=== PATIENT | female | born 1940 | race Caucasian/White ===

== ENCOUNTER 2017-01-14 14:52 | Emergency (ER) | payer OTHER ==
[~2017-01-14] VITALS: Ht 177.8 cm; Wt 138.3 kg
[~2017-01-14 14:52] MED LIST: ACETAMINOPHEN325 M2 PO; ACIDOPHILUS W/P1 CAP PO; ANTIHISTAMINE25 M1 PO; ASPIRIN81 M1 PO; BACTROBAN OINT0.9 GM T; BACTROBAN2% TP; BUMETANIDE1 MG PO; BUMEX1 MG PO; BUMEX2 MG PO; CENTRUM1 TAB PO; COREG25 MG PO; COUMADIN5 M2 PO; DIGOXIN0.125 MG PO; DULCOLAX10 M1 R; DUONEB 3 MG/3 ML3 M1 NEB; EFFER-K20 MEQ PO; ELIQUIS2.5 M1 PO; ELIQUIS5 M1 PO; FEOSOL300 MG PO; FUROSEMIDE40 MG PO; HYDRALAZINE10 MG PO; IRON65 MG PO; KEFLEX500 MG PO; KLOR-CON 1010 MEQ PO; KLOR-CON M2020 ME1 PO; KLOR-CON20 MEQ PO; LEVAQUIN750 MG PO; LEVOFLOXACIN500 MG PO; LISINOPRIL10 MG PO; METOPROLOL TA37.5 MG PO; MILK OF MA400 MG/5 M PO; MINITRAN0.1 MG/HR TD; NATURE'S BLEND F1 MG PO; PRAVACHOL20 MG PO; PREDNISONE10 MG PO; PRILOSEC20 M1 PO; PRILOSEC40 MG PO; TYLENOL325 M1 PO; VIBRA-TAB100 M1 PO; ZAROXOLYN2.5 MG PO
[2017-01-14 15:06] VITALS: BP 118/84
[2017-01-14 15:25] LABS: BASO % 0.4 % (0.0-1.0); EOS % 0.7 % (1.0-4.0); HEMATOCRIT 36.8 % (37.0-47.0); HEMOGLOBIN 11.3 g/dl (12.0-16.0); LYMPH # 0.6 10*3/uL (1.3-4.4); LYMPH % 11.4 % (27.0-41.0); MEAN CELL VOLUME 85.4 fl (81.0-99.0); MEAN CORPUSCULAR HGB 26.2 pg (27.0-31.0); MEAN CORPUSCULAR HGB CONC 30.7 g/dl (33.0-37.0); MEAN PLATELET VOLUME 9.2 fl (9.6-12.3); MONO # 0.4 10*3/uL (0.1-1.0); MONO % 7.5 % (3.0-9.0); NEUT # 4.2 10*3/uL (2.3-7.9); NEUT % 79.4 % (47.0-73.0); PLATELET COUNT AUTOMATED 164 10*3/uL (130-400); RED BLOOD COUNT 4.31 10*6/uL (4.10-5.10); WHITE BLOOD COUNT 5.3 10*3/uL (4.8-10.8)
[2017-01-14 15:40] LABS: ALBUMIN 3.4 gm/dl (3.1-4.5); CREATININE 1.19 mg/dL (0.55-1.02); POTASSIUM 4.7 mmol/L (3.5-5.1); TOTAL PROTEIN 7.7 gm/dL (6.4-8.2)
[2017-01-14 16:11] LABS: BILIRUBIN NEGATIVE (NEGATIVE); BLOOD TRACE-LYSED (NEGATIVE); CLARITY CLEAR (CLEAR); COLOR YELLOW (YELLOW); GLUCOSE NEGATIVE (NEGATIVE); KETONE NEGATIVE (NEGATIVE); LEUKO ESTERASE 1+ (NEGATIVE); NITRITE NEGATIVE (NEGATIVE); PH 5.5 (5.0-9.0); SPECIFIC GRAVITY <= 1.005 (1.005-1.030); UROBILINOGEN 0.2 E.U./dl (0.2-1.0)
[2017-01-14 16:18] LABS: BACTERIA 1+; RBC 0-2 rbc/hpf (0-2)
[2017-01-14] MEDS ORDERED: PYRIDIUM100 MG PO (17:14)
== END 2017-01-14 18:36 | disposition home or self-care (01) ==
LOC: ED 14:52
PROVIDERS: Student in an Organized Health Care Education/Training Program
DX: N39.0 Urinary tract infection, site not specified (principal); I13.0 Hypertensive heart and chronic kidney disease with heart failure and stage 1 through stage 4 chronic kidney disease, or unspecified chronic kidney disease; N18.3 Chronic kidney disease, stage 3 (moderate); I50.9 Heart failure, unspecified; I48.91 Unspecified atrial fibrillation; K21.9 Gastro-esophageal reflux disease without esophagitis; E78.5 Hyperlipidemia, unspecified; E66.9 Obesity, unspecified; M06.9 Rheumatoid arthritis, unspecified; Z68.39 Body mass index [BMI] 39.0-39.9, adult; Z90.710 Acquired absence of both cervix and uterus; Z98.890 Other specified postprocedural states; Z98.42 Cataract extraction status, left eye; Z79.899 Other long term (current) drug therapy

== ENCOUNTER 2017-01-19 10:28 | Inpatient (IN) | payer OTHER ==
[2017-01-19] VITALS (12 sets, daily range): BP systolic 100–152; BP diastolic 35–67
[~2017-01-19] VITALS: Ht 177.8 cm; Wt 133.4 kg
--- NOTE | ~2017-01-19 | PR ---
[place], [place] PROGRESS NOTE NAME: RHETT PASTRANA UNIT #: [id number] ROOM: 408 DOCTOR: DAVON MOSQUEDAEBER BIRTHDATE: [birth year] DOS: 01/23/2017 SUBJECTIVE: The patient was seen at her bedside today, 01/23/2017 for followup of her atrial fibrillation in the setting of gastrointestinal blood loss. She is feeling well today. She states that she has a lot of pressure in her abdomen, but denies nausea, vomiting or melena. She has not had any recent diarrhea. Her heart rate has been better controlled on the increased dose of metoprolol and she denies any lightheadedness. Review of the chart indicates that she is scheduled to have further endoscopy within the next day or two. PHYSICAL EXAMINATION: VITAL SIGNS: Today, her pulse is around 80 and irregularly irregular, blood pressure is 122/54. She is afebrile. She weighs 147.4 kg and has a body mass index of 46.6. HEENT: Normocephalic, atraumatic. NECK: Supple. She has no jugular distention. Carotids are full and I heard no bruits. LUNGS: Respirations were unlabored. Her chest was clear to auscultation and percussion. HEART: Had an irregularly irregular rhythm without murmurs or gallops. ABDOMEN: Distended, but soft and normally active. EXTREMITIES: Had lymphedema. LABORATORY DATA: Hemoglobin is 9.9 and stable, white count is 4500, platelet count 147,000. Sodium is 138, potassium 3.7, BUN 67, creatinine 0.89. IMPRESSION: 1. Permanent atrial fibrillation. 2. Lymphedema. 3. Hypertension. 4. Chronic diastolic heart failure with acute exacerbation. The patient appears to be well compensated at this time. 5. Chronic renal insufficiency -- stable. 6. Upper gastrointestinal bleed. Anticoagulation has been on hold pending completion of her gastrointestinal evaluation. PLAN: The patient appears to be hemodynamically stable. We will continue her current medications and resume anticoagulation therapy when cleared by Gastroenterology. We thank the hospitalist physicians for asking our advice regarding her care. [place], [place] PROGRESS NOTE NAME: RHETT PASTRANA UNIT #: [id number] ROOM: 408 DOCTOR: EBER MAYS MD BIRTHDATE: [birth year] EBER MAYS MD CM:PNTRANS [phone] EBER MAYS MD 01/23/17 1144 interface
--- NOTE | ~2017-01-19 | O ---
[place], [place] OPERATIVE NOTE NAME: RHETT PASTRANA UNIT #: [id number] ROOM: 408 DOCTOR: ARPAN ROCHE MD BIRTHDATE: [birth year] DOS: GASTROENDOSCOPIC REPORT INDICATIONS: The patient has presented with chief complaint of epigastric abdominal pain, history of anemia, history of gastritis, morbid obesity and otherwise is being managed at the present time. I have been asked for assessment of the patient's colon. PAST MEDICAL HISTORY: Hypertension, chronic renal disease, congestive heart failure, obesity, gastroesophageal reflux, atrial fibrillation, dyslipidemia and hypertension. PROCEDURE: Today's procedure part of investigation is colonoscopy. PREMEDICATION: Versed and Diprivan. SCOPE: Olympus forward-viewing colonoscope 10L video. REPORT: After putting the patient in the left lateral position and after application of lubricant to rectal pouch and digital examination, scope was introduced. Thereafter under direct visualization with difficulty passed through the very involved segment of sigmoid colon with diverticulosis and tortuosity. Scope finally negotiated all the way to about hepatic flexure where solid stool is hindering. Further advancement, scope was gradually withdrawn. The patient extubated, tolerated procedure well. IMPRESSION: Diverticulosis, tortuous sigmoid colon, retention of stool in right colon. PLAN AND DISCUSSION: We will see the patient with supportive management at this stage. I will discuss with the patient to see if she wants to have a re-prep and re-done, I doubt. Sincerely if they are going to agree because initially, they are going to even difficulty with agreement regarding even a colonoscopy screening. [place], [place] OPERATIVE NOTE NAME: RHETT PASTRANA UNIT #: [id number] ROOM: 408 DOCTOR: ARPAN ROCHE MD BIRTHDATE: [birth year] ARPAN ROCHE MD CM:OPRECORD:OPERATIVE NOTE [id number] ARPAN ROCHE MD 01/26/17 1103 interface
--- NOTE | ~2017-01-19 | PR ---
[place], [place] PROGRESS NOTE NAME: RHETT PASTRANA [facility] #: [id number] UNIT #: [id number] ROOM: 408 DOCTOR: DELL MAR MD BIRTHDATE: [birth year] DOS: REFERRING PHYSICIAN: Dr. Curran. SUBJECTIVE: The patient is sitting up in bed, does not appear in distress, requesting to be discharged home. From the cardiology point of view, denies any specific cardiac complaint. No chest pain, no chest pressure, no heaviness or tightness. OBJECTIVE: VITAL SIGNS: Blood pressure 135/55, heart rate 80, respiratory rate of 18, temperature 97.5. NECK: Good upstroke, no bruit. HEART: S1, S2 with significant systolic ejection murmur at right upper sternal border. Holosystolic murmur at left lower sternal border. CHEST AND BACK: Not examined. LUNGS: Significant decreased air movement, but no ying wheezing or rales. ABDOMEN: Morbidly obese, soft, nontender, present bowel sounds. EXTREMITIES: Lower extremities, there is a 2/4 bilateral edema/lymphedema. LABORATORY DATA: White count 4.3, hemoglobin 10.0. Potassium 3.8. GFR 57%. ASSESSMENT AND PLAN: Current presentation with atrial fibrillation and rapid ventricular response along with signs of diastolic dysfunction. The patient had evidence of anemia, but subsequent EGD and colonoscopy convert on the presence of diverticulitis. The patient is back on her Xarelto. She appears to be tolerating that relatively well. From the cardiology point of view, she can be discharged home and with early follow up with Dr. Ramirez within 2-4 weeks. Low-salt diet was emphasized. DELL MAR MD CM:PNTRANS 02 [phone] DELL MAR MD 01/27/172352 interface
--- NOTE | ~2017-01-19 | O ---
[place], [place] OPERATIVE NOTE NAME: RHETT PASTRANA [facility] #: [id number] UNIT #: [id number] ROOM: 408 [facility] [birth year] DOS: GASTRO-ENDOSCOPIC REPORT INDICATIONS: The patient is a 76-year-old who has presented with multiple medical problems, among which is her borderline anemia and 10 and 33. The patient on Xarelto. I have been asked for assessment of the patient, ruling out upper GI contribution to blood loss. She is also expressing BUN and creatinine of 93 and 1.3 with 47% GFR, lactic acid 1.5. Her CT scan of the abdomen and pelvis reviewed, gastroesophageal reflux, diverticulosis, splenomegaly, anterior abdominal wall possible cellulitis, hyperdense ____ region. These may be hemorrhagic cysts. Further investigation was recommended. BUN and creatinine remain elevated on repeated examinations. Urine culture, greater than 100,000 heavy gram-negative bacilli. Basic metabolic panel was reassessed. CBC differential reassessed. Ova and parasite negative. PAST MEDICAL HISTORY: Obesity, diabetes mellitus, chronic renal failure, atrial fibrillation, GERD, hyperlipidemia, stasis dermatitis of lower extremities. PAST SURGICAL HISTORY: Cataract, hysterectomy. SOCIAL HISTORY: Nonsmoker, nonalcohol consumer. FAMILY HISTORY: Noncontributory. ALLERGIES: To no known medication. MEDICATIONS: List has been reviewed, Zantac 150 mg b.i.d. has been noticed. She has been chronically on bisacodyl. PROCEDURE: Today's procedure part of investigation is panendoscopy plus biopsy. PREMEDICATION: Versed and Diprivan. SCOPE: Olympus forward-viewing gastroscope Q10 video. REPORT: After putting the patient in the left lateral position and after application of lubricant to the scope, the scope was introduced. Thereafter, under direct visualization, I advanced through the length of esophagus into the gastric pouch. Evidence of gastritis was noticed. Antral biopsy obtained. Duodenal bulb, second and third parts were free of ulceration and lesion. The patient extubated, tolerated procedure well. IMPRESSION: Gastritis, status post biopsy. I did not see any active source of bleeding in this patient; however, the patient has been on ranitidine. The patient has been on Xarelto. PLAN AND DISCUSSION: This patient with multiple causes for anemia including contribution from colon occult malignancy and in addition to renal insufficiency and in addition to rheumatologic etiologies with advanced rheumatoid arthritis [place], [place] OPERATIVE NOTE NAME: [facility]: [id number] UNIT #: [id number] ROOM: 408 DOCTOR: KALEY MOSQUEDA,ARPAN BIRTHDATE: [birth year] and stasis dermatitis of lower extremities and ulcerations, possibility of anticoagulants for chronic blood loss, which she is taking because of atrial fibrillation, all have been kept in mind. At the present time, no active bleeding in the upper GI tract. Possibility of renal cyst and lesions has to be another consideration. Sonographic study of the renal is recommended. The patient is going to be started on soft 1800 ADA diet and clinical reassessment. Protonix is going to be on board. Thank you very much indeed. ARPAN ROCHE MD CM:OPRECORD:OPERATIVE NOTE [phone] ARPAN ROCHE MD 01/24/17 1552 interface
--- NOTE | ~2017-01-19 | PR ---
[place], [place] PROGRESS NOTE NAME: ACOSTA [facility]NAJORIE [id number] UNIT #: [id number] ROOM: 408 DOCTOR: EBER MAYS MD BIRTHDATE: [birth year] DOS: 01/22/2017 CARDIOLOGY PROGRESS NOTE SUBJECTIVE: The patient was seen at her bedside today, 01/22/2017, for a followup of her atrial fibrillation in the setting of a GI bleed. She feels well. She denies any upset stomach, nausea or vomiting. Her heart rate has been better controlled and she denies any lightheadedness or syncope. Review of her labs show that her hemoglobin has stabilized at about 9.8. PHYSICAL EXAMINATION: VITAL SIGNS: Today, her pulse is 85 and irregularly irregular, blood pressure is 126/77. She is afebrile. She weighs 147.4 kg and has a body mass index of 46.6. NECK: Supple. She has no jugular distention. Her carotids are full. LUNGS: Respirations are unlabored. Her chest is clear. HEART: Has an irregularly irregular rhythm. There are no murmurs or gallops. ABDOMEN: Slightly distended, but otherwise benign. EXTREMITIES: Showed no edema. IMPRESSIONS: 1. Permanent atrial fibrillation. 2. Lymphedema. 3. Hypertension. 4. Chronic diastolic heart failure with acute exacerbation. 5. Renal insufficiency. 6. Upper gastrointestinal bleed. Anticoagulation therapy on hold pending GI evaluation. PLAN: At this point, she does seem to have a well-controlled heart rate. Vital signs have stabilized and her blood count has stabilized as well. I will titrate her metoprolol up somewhat more and continue to monitor her in the hospital. We would like to resume her anticoagulation as soon as it is safe to do so. I thank the hospitalist physicians for asking our advice regarding her care. [place], [place] PROGRESS NOTE NAME: ZEIANRHETT BRUNSON UNIT #: [id number] ROOM: 408 DOCTOR: EBER MAYS MD BIRTHDATE: [birth year] EBER MAYS MD CM:PNTRANS [id number] EBER MAYS MD 01/23/17 0401 interface
[~2017-01-19 10:28] MED LIST changes: +PYRIDIUM100 MG PO
[2017-01-19 10:52] LABS: BASO % 0.2 % (0.0-1.0); EOS % 0.8 % (1.0-4.0); HEMATOCRIT 34.2 % (37.0-47.0); HEMOGLOBIN 10.3 g/dl (12.0-16.0); LYMPH # 0.5 10*3/uL (1.3-4.4); LYMPH % 10.6 % (27.0-41.0); MEAN CELL VOLUME 86.6 fl (81.0-99.0); MEAN CORPUSCULAR HGB 26.1 pg (27.0-31.0); MEAN CORPUSCULAR HGB CONC 30.1 g/dl (33.0-37.0); MONO # 0.3 10*3/uL (0.1-1.0); MONO % 6.4 % (3.0-9.0); NEUT # 4.1 10*3/uL (2.3-7.9); NEUT % 81.6 % (47.0-73.0); PLATELET COUNT AUTOMATED 135 10*3/uL (130-400); RED BLOOD COUNT 3.95 10*6/uL (4.10-5.10); RED CELL DISTRI WIDTH 14.1 % (0-14.5)
[2017-01-19 11:01] LABS: ACT PARTIAL THROMBO TIME 27.1 SECONDS (20.8-31.5)
[2017-01-19 11:07] LABS: ALBUMIN 3.3 gm/dl (3.1-4.5); ALKALINE PHOSPHATASE 155 U/L (45-117); BUN 93 mg/dl (7-24); CHLORIDE 92 mmol/L (98-107); CREATININE 1.34 mg/dL (0.55-1.02); MAGNESIUM 2.4 mg/dL (1.5-2.1); POTASSIUM 4.2 mmol/L (3.5-5.1); SGOT/AST 26 IU/L (3-35); SGPT/ALT 27 U/L (12-78); SODIUM 134 mmol/L (136-145); TOTAL PROTEIN 7.4 gm/dL (6.4-8.2)
[2017-01-19 11:10] LABS: TROPONIN I < 0.015 ng/ml (<0.045)
[2017-01-19 11:17] LABS: BILIRUBIN NEGATIVE (NEGATIVE); BLOOD NEGATIVE (NEGATIVE); CLARITY CLEAR (CLEAR); COLOR YELLOW (YELLOW); GLUCOSE NEGATIVE (NEGATIVE); KETONE NEGATIVE (NEGATIVE); LEUKO ESTERASE NEGATIVE (NEGATIVE); NITRITE NEGATIVE (NEGATIVE); UROBILINOGEN 0.2 E.U./dl (0.2-1.0)
[2017-01-19 11:30] LABS: RBC 0-2 rbc/hpf (0-2)
--- NOTE | 2017-01-19 12:13 | NUR ---
CARDIZEM DRIP REMAINS AT 10MG/HR. VSS. SISTER AT BEDSIDE, WILL CONT TO MONITOR.
--- NOTE | 2017-01-19 13:58 | NUR ---
TREVER, NURSE AT [facility] INFORMED OF DECISION TO ADMIT PATIENT AND GIVEN UPDATE.
[2017-01-19] MEDS ORDERED: DEEP SEA44 ML NAS (14:31)
[2017-01-19] MEDS ORDERED: LASIX80 MG PO (14:33)
--- NOTE | 2017-01-19 14:34 | NUR ---
[facility] , under the services of MIRTHA Dias DO with a diagnosis of AFIB. Chief complaint is CHEST PAIN. Patient arrived via bed from ER. Monitor applied. Initial assessment completed. Vital signs taken and recorded. MIRTHA DIAS DO notified of admission to the unit. Orders received. See assessment for past medical history, medications and allergies. Patient and/or family oriented to unit. [facility] visitation policy reviewed. Clothing/patient valuable form completed. HAL TIJERINA
[2017-01-19] MEDS ORDERED: DOCUSATE SOD100 MG PO (14:50)
[2017-01-19] MEDS ORDERED: PROVENTIL HFA6.7 GM INH (14:52)
[2017-01-19] MEDS ORDERED: ZANTAC 150150 MG PO (14:54)
[2017-01-19] MEDS ORDERED: Zaroxolyn,Diul2.5 MG PO (14:55)
--- NOTE | 2017-01-19 14:57 | NUR ---
MEDICATIONS VERIFIED VIA MED REC FROM SNF
--- NOTE | 2017-01-19 16:44 | NUR ---
CARDILOGY SERVICE NOTIFIED OF CONSULT
--- NOTE | 2017-01-19 17:00 | NUR ---
Patient not available for echo. Being prepped. Going for Barium swallow test. echo on hold tillmonday 01/22/17.
--- NOTE | 2017-01-19 17:03 | NUR ---
Patient not available for echo. Being prepped for another proceure. Echo to be done Sunday01/22/17.
--- NOTE | 2017-01-19 21:42 | NUR ---
GIVEN PRN ACETAMINOPHEN FOR HEADACHE.
[2017-01-20] VITALS: BP 103/60
[2017-01-20 04:00] VITALS: BP 121/52
--- NOTE | 2017-01-20 05:17 | NUR ---
IV STARTED IN RIGHT ARM, 22 CAREN WITH GOOD BLOOD RETURN, FLUSHED WITHOUT DIFFICULTY, PT TOLERATED WELL
[2017-01-20 05:50] LABS: ALBUMIN 3.1 gm/dl (3.1-4.5); CHLORIDE 92 mmol/L (98-107); MAGNESIUM 2.2 mg/dL (1.5-2.1); POTASSIUM 3.9 mmol/L (3.5-5.1); SODIUM 136 mmol/L (136-145)
[2017-01-20 05:54] LABS: BASO % 0.5 % (0.0-1.0); EOS # 0.1 10*3/uL (0.0-0.4); EOS % 1.8 % (1.0-4.0); HEMATOCRIT 31.8 % (37.0-47.0); HEMOGLOBIN 9.7 g/dl (12.0-16.0); LYMPH # 0.6 10*3/uL (1.3-4.4); MEAN CELL VOLUME 87.1 fl (81.0-99.0); MEAN CORPUSCULAR HGB 26.6 pg (27.0-31.0); MEAN CORPUSCULAR HGB CONC 30.5 g/dl (33.0-37.0); MEAN PLATELET VOLUME 9.8 fl (9.6-12.3); MONO # 0.4 10*3/uL (0.1-1.0); MONO % 9.5 % (3.0-9.0); NEUT # 3.3 10*3/uL (2.3-7.9); NEUT % 73.7 % (47.0-73.0); PLATELET COUNT AUTOMATED 135 10*3/uL (130-400); RED BLOOD COUNT 3.65 10*6/uL (4.10-5.10); WHITE BLOOD COUNT 4.4 10*3/uL (4.8-10.8)
[2017-01-20 05:56] LABS: ALKALINE PHOSPHATASE 136 U/L (45-117); BUN 84 mg/dl (7-24); CHOLESTEROL 113 mg/dL (<200); CREATININE 1.05 mg/dL (0.55-1.02); FREE T4 1.13 ng/dl (0.76-1.46); HDL CHOLESTEROL 53 mg/dl (40-60); LDL CHOLESTEROL 48 mg/dL (9-159); SGOT/AST 23 IU/L (3-35); SGPT/ALT 24 U/L (12-78); TRIGLYCERIDES 62 mg/dl (<150); VLDL CHOLESTEROL 12 mg/dL (6-40)
[2017-01-20 06:05] LABS: ACT PARTIAL THROMBO TIME 26.3 SECONDS (20.8-31.5)
--- NOTE | 2017-01-20 06:43 | NUR ---
24 HR chart check completed.
[2017-01-20 09:10] LABS: VITAMIN D, 25-HYDROXY 33.1 ng/mL (30-100)
--- NOTE | 2017-01-20 09:17 | NUR ---
PATIENT IS RESTING COMFORTABLY IN BED. PATIENT DENIES AND PAIN OR SOB. PATIENT IS RECEIVING A CARDIZEM DRIP RUNNING AT 5ML/HR TO HELP REGULATE HEART RHYTHM. 0800 MONITOR STRIP SHOWED AFIB AT 97 BPM. WILL CONTINUE TO MONITOR PATIENT, CALL LIGHT SYSTEM REINFORCED. SEE SHIFT ASSESSMENT.
[2017-01-20 12:00] VITALS: BP 106/47
[2017-01-20 16:00] VITALS: BP 146/82
[2017-01-20 20:00] VITALS: BP 115/47
[2017-01-20 22:00] VITALS: BP 103/52
--- NOTE | 2017-01-20 23:43 | NUR ---
MEDICATED WITH PRN TYLENOL ORDERD FOR C/O GENERALIZED PAIN AT A 6. WILL MONITOR EFFECTIVENESS. RESTING QUIETLY IN BED. NO SXS OF DISTRESS. CALL LIGHT IS IN REACH.
[2017-01-21] VITALS (7 sets, daily range): BP systolic 97–121; BP diastolic 53–78
--- NOTE | 2017-01-21 01:00 | NUR ---
PATIENT STATES EARLIER TYLENOL WAS EFFECTIVE.
[2017-01-21 06:01] LABS: BASO % 0.5 % (0.0-1.0); EOS # 0.1 10*3/uL (0.0-0.4); EOS % 2.3 % (1.0-4.0); HEMATOCRIT 32.4 % (37.0-47.0); HEMOGLOBIN 9.6 g/dl (12.0-16.0); LYMPH # 0.7 10*3/uL (1.3-4.4); LYMPH % 16.2 % (27.0-41.0); MEAN CELL VOLUME 87.3 fl (81.0-99.0); MEAN CORPUSCULAR HGB 25.9 pg (27.0-31.0); MEAN CORPUSCULAR HGB CONC 29.6 g/dl (33.0-37.0); MEAN PLATELET VOLUME 9.3 fl (9.6-12.3); MONO # 0.4 10*3/uL (0.1-1.0); MONO % 8.5 % (3.0-9.0); NEUT # 3.1 10*3/uL (2.3-7.9); PLATELET COUNT AUTOMATED 141 10*3/uL (130-400); RED BLOOD COUNT 3.71 10*6/uL (4.10-5.10); RED CELL DISTRI WIDTH 14.3 % (0-14.5); WHITE BLOOD COUNT 4.3 10*3/uL (4.8-10.8)
[2017-01-21 06:27] LABS: BUN 80 mg/dl (7-24); CHLORIDE 91 mmol/L (98-107); SODIUM 136 mmol/L (136-145)
[2017-01-21 06:28] LABS: CREATININE 0.97 mg/dL (0.55-1.02)
--- NOTE | 2017-01-21 06:39 | NUR ---
PATIENT SLEPT COMFORTABLY T/O THE SHIFT. NO VOICED COMPLAINTS. CARD GTT MAINTAINED PER ORDER. RESPIRATIONS EASY/REG. NO SXS OF DISTRESS. CALL LIGHT IN REACH.
--- NOTE | 2017-01-21 10:25 | NUR ---
DR. CHAPMAN ORDERED CARDIZEM BE DC AT THIS TIME, AND ADJUSTED DOSE OF METOPROLOL. SEE EMAR FOR MORE DETAILS. WILL CONTINUE TO MONITOR PT.
--- NOTE | 2017-01-21 11:47 | NUR ---
ATTEMPTED TO CALL DR. ROCHE FOR CONSULT. LEFT MESSAGE.
--- NOTE | 2017-01-21 12:42 | NUR ---
SPOKE WITH DR. KALEY CHAUDHARY CONSULT. HE WOULD LIKE TO BE CALLED WITH KUB RESULTS
--- NOTE | 2017-01-21 13:01 | NUR ---
DR. ROCHE CALLED BACK AND WAS INFORMED ON THE EGD. HE HAS ASKED FOR THE KUB RESULTS WHEN AVAILIBLE.
--- NOTE | 2017-01-21 20:24 | NUR ---
PATIENT IS ORDERED A 50 MG METOPROLOL TONIGHT AND HAS A BP OF 113/56. DR GORDON NOTIFIED OF MY CONCERN TO GIVE THIS. DR GORDON STATED TO GO A HEAD AND HOLD 1/2 OF THE 50 MG TAB. REFER TO MAR.
--- NOTE | 2017-01-21 20:44 | NUR ---
prn tylenol given for a 3/10 headache.
--- NOTE | 2017-01-21 21:45 | NUR ---
PRN PAIN MED APPEARS EFFECTIVE, PT IS SLEEPING , BREATHING EASY.
[2017-01-22] VITALS: BP 116/60
--- NOTE | 2017-01-22 01:49 | NUR ---
24 HR chart check completed.
[2017-01-22 06:32] LABS: BASO % 0.5 % (0.0-1.0); EOS # 0.1 10*3/uL (0.0-0.4); EOS % 2.3 % (1.0-4.0); HEMATOCRIT 32.9 % (37.0-47.0); HEMOGLOBIN 9.8 g/dl (12.0-16.0); LYMPH # 0.6 10*3/uL (1.3-4.4); LYMPH % 14.3 % (27.0-41.0); MEAN CELL VOLUME 87.5 fl (81.0-99.0); MEAN CORPUSCULAR HGB 26.1 pg (27.0-31.0); MEAN CORPUSCULAR HGB CONC 29.8 g/dl (33.0-37.0); MEAN PLATELET VOLUME 9.3 fl (9.6-12.3); MONO # 0.5 10*3/uL (0.1-1.0); MONO % 10.5 % (3.0-9.0); NEUT # 3.1 10*3/uL (2.3-7.9); NEUT % 71.9 % (47.0-73.0); PLATELET COUNT AUTOMATED 143 10*3/uL (130-400); RED BLOOD COUNT 3.76 10*6/uL (4.10-5.10); RED CELL DISTRI WIDTH 14.1 % (0-14.5); WHITE BLOOD COUNT 4.3 10*3/uL (4.8-10.8)
[2017-01-22 07:00] LABS: BUN 76 mg/dl (7-24); CHLORIDE 91 mmol/L (98-107); CREATININE 0.96 mg/dL (0.55-1.02); SODIUM 137 mmol/L (136-145)
[2017-01-22 08:00] VITALS: BP 117/66
--- NOTE | 2017-01-22 08:30 | NUR ---
PASSENGER SERVICE MANAGER VS. STATES SHE LIVES AT [facility] AND PLANS TO RETURN UPON DC. WILL CHECK WITH [facility] FOR DC NEEDS.
--- NOTE | 2017-01-22 09:28 | NUR ---
Kapil Holman stated patient is LTC and can return when medically stable for discharge.
--- NOTE | 2017-01-22 10:57 | NUR ---
PHYSICAL THERAPY PAtient is half-way care for many years. Per PT notes at this facility, has been MAX (A) x 2 or more since 2013. PAtient reports she " has no feelings in her legs, can not stand, move or exercise legs and very little use arms"- requests no PT. PAtient with no PT skills/needs. Suggest solomon via nursing staff prn and PROM with [facility]. Return to half-way care as prior. D/c PT orders. Thank you for this referral. Brittnee Salmeron,PT
[2017-01-22 12:00] VITALS: BP 126/77
--- NOTE | 2017-01-22 13:35 | NUR ---
Stools speciman obtained and sent to lab by
[2017-01-22 16:00] VITALS: BP 134/67
--- NOTE | 2017-01-22 19:51 | NUR ---
PATIENT RESTING IN BED WATCHING TV. NO NEEDS MADE. NO S/S OF DISTRESS. RESPS EASY AND REGULAR. BED IN LOWEST POSITION, CALL LIGHT IN REACH
[2017-01-22 20:00] VITALS: BP 128/72
--- NOTE | 2017-01-22 22:49 | NUR ---
24 HR chart check completed.
[2017-01-23] VITALS: BP 125/58
--- NOTE | 2017-01-23 00:45 | NUR ---
DR AGUILAR AWARE OF PATIENT AFIB WITH OCCASIONAL PVC'S. NO ORDERS.
--- NOTE | 2017-01-23 00:48 | NUR ---
SPOKE WITH CLEANING SPECIALIST ABOUT WHAT TIME PATIENT CONVERTED TO AFIB DURING DAY SHIFT. SHE STATES THAT THE PATIENT WAS NEVER NSR AND IT WAS A TECH ERROR WHEN STATES THAT THE PATIENT WAS. SHE HAS ALWAYS BEEN IN AFIB.
--- NOTE | 2017-01-23 01:51 | NUR ---
PATIENT RESTING IN BED WITH NO S/S OF DISTRESS. RESPS EASY AND REGULAR. BED IN LOWEST POSITION, CALL LIGHT IN REACH
[2017-01-23 06:20] LABS: BASO % 0.2 % (0.0-1.0); EOS # 0.1 10*3/uL (0.0-0.4); EOS % 1.6 % (1.0-4.0); HEMATOCRIT 33.4 % (37.0-47.0); HEMOGLOBIN 9.9 g/dl (12.0-16.0); LYMPH # 0.6 10*3/uL (1.3-4.4); LYMPH % 13.2 % (27.0-41.0); MEAN CELL VOLUME 87.7 fl (81.0-99.0); MEAN CORPUSCULAR HGB CONC 29.6 g/dl (33.0-37.0); MEAN PLATELET VOLUME 9.3 fl (9.6-12.3); MONO # 0.5 10*3/uL (0.1-1.0); NEUT # 3.3 10*3/uL (2.3-7.9); NEUT % 74.6 % (47.0-73.0); PLATELET COUNT AUTOMATED 147 10*3/uL (130-400); RED BLOOD COUNT 3.81 10*6/uL (4.10-5.10); RED CELL DISTRI WIDTH 14.1 % (0-14.5); WHITE BLOOD COUNT 4.5 10*3/uL (4.8-10.8)
[2017-01-23 06:44] LABS: BUN 67 mg/dl (7-24); CHLORIDE 90 mmol/L (98-107); CREATININE 0.89 mg/dL (0.55-1.02); POTASSIUM 3.7 mmol/L (3.5-5.1); SODIUM 138 mmol/L (136-145)
--- NOTE | 2017-01-23 06:50 | NUR ---
DR NANCE AWARE OF CRITICAL CARBON DIOXIDE OF 42. NO ORDERS
[2017-01-23 08:00] VITALS: BP 122/54
--- NOTE | 2017-01-23 10:56 | NUR ---
DR PATTEN IN WITH PATIENT NURSE CALLED DR ROCHE TO VERIFY IF PATIENT WAS IN FACT HAVING EGD TODAY. DR ROCHE WAS WAITING FOR PATIENTS HEART RATE TO STABILZE WELL PATIENTS OTHER HEALTH ISSUES BEFORE HE TOOK HER TO SURGERY. PATIENT WILL REAMIN ON CARDIAC DIET TODAY AND WILL BE NPO AT MISNIGHT AND GO FOR EGD IN MORNING TOMORROW 01/24/17. NURSE NOTIFIED RAMOS OF THE CONVERSATION WITH DR ROCHE. PATIENT WAS ALSO ADVISED OF THE PLAIN OF CARE FOR HER SEE SHIFT ASSESSMENT
[2017-01-23 11:17] LABS: BILIRUBIN NEGATIVE (NEGATIVE); BLOOD 2+ (NEGATIVE); CLARITY CLEAR (CLEAR); COLOR YELLOW (YELLOW); GLUCOSE NEGATIVE (NEGATIVE); KETONE NEGATIVE (NEGATIVE); LEUKO ESTERASE 1+ (NEGATIVE); NITRITE NEGATIVE (NEGATIVE); PH 5.5 (5.0-9.0); SPECIFIC GRAVITY <= 1.005 (1.005-1.030); UROBILINOGEN 0.2 E.U./dl (0.2-1.0)
[2017-01-23 11:27] LABS: BACTERIA 1+; RBC 16-20 rbc/hpf (0-2)
--- NOTE | 2017-01-23 11:45 | NUR ---
Complaints of headache above eyes, rated 3/ 10 scale. Medicated with Tylenol po. See MAR. Bayron MCKINNON
[2017-01-23 12:00] VITALS: BP 120/62
[2017-01-23 16:10] VITALS: BP 120/60
[2017-01-23 20:00] VITALS: BP 120/60
[2017-01-24] VITALS (9 sets, daily range): BP systolic 102–142; BP diastolic 52–70
[2017-01-24 06:21] LABS: BUN 60 mg/dl (7-24); CHLORIDE 90 mmol/L (98-107); CREATININE 0.97 mg/dL (0.55-1.02); POTASSIUM 3.9 mmol/L (3.5-5.1); SODIUM 140 mmol/L (136-145)
[2017-01-24 06:26] LABS: BASO % 0.7 % (0.0-1.0); EOS # 0.1 10*3/uL (0.0-0.4); EOS % 2.8 % (1.0-4.0); HEMATOCRIT 34.9 % (37.0-47.0); HEMOGLOBIN 10.1 g/dl (12.0-16.0); LYMPH # 0.5 10*3/uL (1.3-4.4); LYMPH % 11.8 % (27.0-41.0); MEAN CELL VOLUME 89.3 fl (81.0-99.0); MEAN CORPUSCULAR HGB 25.8 pg (27.0-31.0); MEAN CORPUSCULAR HGB CONC 28.9 g/dl (33.0-37.0); MEAN PLATELET VOLUME 9.6 fl (9.6-12.3); MONO # 0.4 10*3/uL (0.1-1.0); MONO % 8.7 % (3.0-9.0); NEUT # 3.5 10*3/uL (2.3-7.9); NEUT % 75.6 % (47.0-73.0); PLATELET COUNT AUTOMATED 144 10*3/uL (130-400); RED BLOOD COUNT 3.91 10*6/uL (4.10-5.10); RED CELL DISTRI WIDTH 14.1 % (0-14.5); WHITE BLOOD COUNT 4.6 10*3/uL (4.8-10.8)
--- NOTE | 2017-01-24 16:57 | NUR ---
DR ROCHE CALLED AND NOTIFIED THAT PATIENT IS REFUSING COLO FOR SUNDAY. HE STATED TO CANCEL ANY COLO ORDERS AND ALSO STATED TO GIVE THE PATIENT A REGUALR DIET. NO OTHER COCNERNS AT THIS TIME.
[2017-01-25] VITALS: BP 104/55
[2017-01-25 06:50] LABS: BASO % 0.5 % (0.0-1.0); EOS # 0.2 10*3/uL (0.0-0.4); EOS % 3.6 % (1.0-4.0); HEMATOCRIT 33.6 % (37.0-47.0); LYMPH # 0.7 10*3/uL (1.3-4.4); LYMPH % 16.9 % (27.0-41.0); MEAN CELL VOLUME 89.1 fl (81.0-99.0); MEAN CORPUSCULAR HGB 26.5 pg (27.0-31.0); MEAN CORPUSCULAR HGB CONC 29.8 g/dl (33.0-37.0); MEAN PLATELET VOLUME 9.2 fl (9.6-12.3); MONO # 0.4 10*3/uL (0.1-1.0); MONO % 10.4 % (3.0-9.0); NEUT # 2.8 10*3/uL (2.3-7.9); NEUT % 68.4 % (47.0-73.0); PLATELET COUNT AUTOMATED 135 10*3/uL (130-400); RED BLOOD COUNT 3.77 10*6/uL (4.10-5.10); RED CELL DISTRI WIDTH 14.1 % (0-14.5); WHITE BLOOD COUNT 4.1 10*3/uL (4.8-10.8)
[2017-01-25 07:10] LABS: BUN 57 mg/dl (7-24); CHLORIDE 89 mmol/L (98-107); CREATININE 0.98 mg/dL (0.55-1.02); POTASSIUM 3.6 mmol/L (3.5-5.1); SODIUM 140 mmol/L (136-145)
--- NOTE | 2017-01-25 07:51 | NUR ---
DR. GORDON NOTIFIED OF CRITICAL LAB RESULT OF CO2 OF PT.
[2017-01-25 08:00] VITALS: BP 129/66
--- NOTE | 2017-01-25 08:08 | NUR ---
Faxed clincal information to [facility] for review per request
--- NOTE | 2017-01-25 11:34 | NUR ---
DR. ROCHE NOTIFIED THAT PT AGREES TO COLONOSCOPY FOR TOMORROW.
[2017-01-25 12:00] VITALS: BP 102/64
[2017-01-25 16:00] VITALS: BP 100/62
--- NOTE | 2017-01-25 16:00 | NUR ---
RESTING COMFORTABLY WITH NO VOICED C/O OFFERED. EASY RESPIRATIONS WITH SKIN W/D. REPOSITIONED FOR COMFORT & TO RELIEVE PRESSURE AREAS. SEE SHIFT ASSESSMENT.
--- NOTE | 2017-01-25 19:10 | NUR ---
DISCUSSED NPO STATUS AFTER MIDNIGHT, PT VOICES UNDERSTANDING. OFFERED SUPPORTIVE CARE.
--- NOTE | 2017-01-25 19:30 | NUR ---
PT. AWAKE, ALERT AND ORIENTED AT THIS TIME. PT. CURRENTLY DENIES SOB, CP. PT. WOULD NOT ALLOW ME TO VIEW PRESSURE AREAS AT THIS TIME, STATED SHE WAS "TOO TIRED" TO BE MOVED. CALL LIGHT WITHIN REACH, BED IN LOWEST POSITION, WHEELS LOCKED.
[2017-01-25 20:00] VITALS: BP 113/63
[2017-01-26] VITALS (11 sets, daily range): BP systolic 105–174; BP diastolic 42–81
--- NOTE | 2017-01-26 02:43 | NUR ---
24 HR CHART CHECK COMPLETE
[2017-01-26 06:53] LABS: BASO % 0.4 % (0.0-1.0); EOS # 0.1 10*3/uL (0.0-0.4); EOS % 2.3 % (1.0-4.0); HEMATOCRIT 34.8 % (37.0-47.0); HEMOGLOBIN 10.6 g/dl (12.0-16.0); LYMPH # 0.6 10*3/uL (1.3-4.4); LYMPH % 12.9 % (27.0-41.0); MEAN CELL VOLUME 87.7 fl (81.0-99.0); MEAN CORPUSCULAR HGB 26.7 pg (27.0-31.0); MEAN CORPUSCULAR HGB CONC 30.5 g/dl (33.0-37.0); MEAN PLATELET VOLUME 9.2 fl (9.6-12.3); MONO # 0.4 10*3/uL (0.1-1.0); MONO % 8.5 % (3.0-9.0); NEUT # 3.6 10*3/uL (2.3-7.9); NEUT % 75.3 % (47.0-73.0); PLATELET COUNT AUTOMATED 143 10*3/uL (130-400); RED BLOOD COUNT 3.97 10*6/uL (4.10-5.10); RED CELL DISTRI WIDTH 13.9 % (0-14.5); WHITE BLOOD COUNT 4.7 10*3/uL (4.8-10.8)
[2017-01-26 07:19] LABS: ALBUMIN 3.3 gm/dl (3.1-4.5); ALKALINE PHOSPHATASE 156 U/L (45-117); BUN 50 mg/dl (7-24); CHLORIDE 85 mmol/L (98-107); POTASSIUM 3.4 mmol/L (3.5-5.1); SGOT/AST 35 IU/L (3-35); SGPT/ALT 29 U/L (12-78); SODIUM 135 mmol/L (136-145); TOTAL PROTEIN 7.5 gm/dL (6.4-8.2)
--- NOTE | 2017-01-26 08:13 | NUR ---
RESTING COMFORTABLY WITH NO VOICED C/O OFFERED. DENIES C/O ABD PAIN OR NAUSEA AT PRESENT TIME. DISCUSSED NPO STATUS, PT VOICES UNDERSTANDING. SEE SHIFT ASSESSMENT.
--- NOTE | 2017-01-26 09:30 | NUR ---
Remains NPO, to OR via bed. Charu MCKINNON
--- NOTE | 2017-01-26 11:45 | NUR ---
rETURNED TO ROOM. SISTER HERE AT BEDSIDE. Charu MCKINNON
--- NOTE | 2017-01-26 14:17 | NUR ---
TYLENOL FOR HEADACHE
--- NOTE | 2017-01-26 17:19 | NUR ---
PT REFUSES TO HAVE IV SITE RESTARTED AT THIS TIME, STATES THAT SHE BELIEVES SHE WILL BE DISCHARGED TOMORROW.
--- NOTE | 2017-01-26 21:46 | NUR ---
PATIENT MEDICATED WITH PO TYLENOL PER PRN ORDER FOR C/O A HEADACHE. WILL MONITOR EFFECTIVENESS. REPOSITIONED PATIENT IN BED AT THIS TIME FOR COMFORT. REFUSING TO TURN TO ONE SIDE, STATES SHE NEEDS TO SLEEP ON HER BACK. WILL MONITOR.
--- NOTE | 2017-01-26 22:54 | NUR ---
PATIENT STATES EARLIER MEDICATION WAS EFFECTIVE. WILL MONITOR. CALL LIGHT LEFT WITHIN REACH.
[2017-01-27] VITALS: BP 110/56
[2017-01-27 06:14] LABS: BASO % 0.7 % (0.0-1.0); EOS # 0.1 10*3/uL (0.0-0.4); EOS % 2.6 % (1.0-4.0); HEMATOCRIT 33.8 % (37.0-47.0); LYMPH # 0.6 10*3/uL (1.3-4.4); LYMPH % 13.3 % (27.0-41.0); MEAN CELL VOLUME 89.2 fl (81.0-99.0); MEAN CORPUSCULAR HGB 26.4 pg (27.0-31.0); MEAN CORPUSCULAR HGB CONC 29.6 g/dl (33.0-37.0); MEAN PLATELET VOLUME 9.6 fl (9.6-12.3); MONO # 0.3 10*3/uL (0.1-1.0); MONO % 7.7 % (3.0-9.0); NEUT # 3.2 10*3/uL (2.3-7.9); NEUT % 75.5 % (47.0-73.0); PLATELET COUNT AUTOMATED 141 10*3/uL (130-400); RED BLOOD COUNT 3.79 10*6/uL (4.10-5.10); RED CELL DISTRI WIDTH 13.8 % (0-14.5); WHITE BLOOD COUNT 4.3 10*3/uL (4.8-10.8)
[2017-01-27 06:42] LABS: BUN 46 mg/dl (7-24); CHLORIDE 89 mmol/L (98-107); CREATININE 0.95 mg/dL (0.55-1.02); POTASSIUM 3.8 mmol/L (3.5-5.1); SODIUM 138 mmol/L (136-145)
--- NOTE | 2017-01-27 06:54 | NUR ---
Critical lab CO2 44. Dr. Bates notified, no new orders.
[2017-01-27 08:00] VITALS: BP 135/55
[2017-01-27 08:13] LABS: ABG BASE EXCESS 16.6 mmol/L (-2.0-2.0); ABG HCO3 45.3 mmol/l (22-26); ABG O2 SATURATION 87.2 % (95-97); ARTERIAL BLOOD GAS PH 7.359 (7.35-7.45); ARTERIAL BLOOD GAS PO2 51.2 mmHg (80-90)
[2017-01-27 08:21] LABS: ARTERIAL BLOOD GAS PCO2 81.7 mmHg (35-45)
[2017-01-27 08:53] LABS: ABG BASE EXCESS 15.4 mmol/L (-2.0-2.0); ABG HCO3 43.1 mmol/l (22-26); ABG O2 SATURATION 96.9 % (95-97); ARTERIAL BLOOD GAS PH 7.391 (7.35-7.45); ARTERIAL BLOOD GAS PO2 77.6 mmHg (80-90)
--- NOTE | 2017-01-27 08:57 | NUR ---
DR. LU NOTIFIED OF CO2 FROM REPEAT ABG'S.
--- NOTE | 2017-01-27 11:00 | NUR ---
Pt refused to wear SCD's. Pt states that if the Dr. insists on them she would wear them. Notified that the Dr. did order them for her and they are to prevent blood clots and help with edema. Pt states she doesn't want to wear them.
[2017-01-27 12:00] VITALS: BP 114/65
[2017-01-27] MEDS ORDERED: METOPROLOL TART50 M1 PO (14:06)
--- NOTE | 2017-01-27 14:20 | NUR ---
Report called to [facility] nurse to nurse report given and dc med list faxed to them as requested.
--- NOTE | 2017-01-27 14:25 | NUR ---
Removed, iv sites, leiva, and monitor.
--- NOTE | 2017-01-27 14:45 | NUR ---
Pt dc in care of [facility] to [facility].
== END 2017-01-27 14:45 | DRG 377 ==
LOC: ED 10:28 → 4E 12:53 → EDHOLD 12:53 → 4E 13:45
PROVIDERS: Emergency Medicine; Family Medicine; Hospitalist; Internal Medicine; Nurse Practitioner Family; ADMIT Internal Medicine
PROC: 0DB68ZX Excision of Stomach, Via Natural or Artificial Opening Endoscopic, Diagnostic (ICD-10-PCS; principal; 2017-01-24)
PROC: 0DJD8ZZ Inspection of Lower Intestinal Tract, Via Natural or Artificial Opening Endoscopic (ICD-10-PCS; 2017-01-26)
DX: K29.71 Gastritis, unspecified, with bleeding (principal); N17.0 Acute kidney failure with tubular necrosis; I50.33 Acute on chronic diastolic (congestive) heart failure; E44.0 Moderate protein-calorie malnutrition; E87.1 Hypo-osmolality and hyponatremia; Z68.42 Body mass index [BMI] 45.0-49.9, adult; E83.41 Hypermagnesemia; I48.2 Chronic atrial fibrillation; N39.0 Urinary tract infection, site not specified; R16.1 Splenomegaly, not elsewhere classified; I13.0 Hypertensive heart and chronic kidney disease with heart failure and stage 1 through stage 4 chronic kidney disease, or unspecified chronic kidney disease; E66.01 Morbid (severe) obesity due to excess calories; E78.5 Hyperlipidemia, unspecified; I89.0 Lymphedema, not elsewhere classified; K21.9 Gastro-esophageal reflux disease without esophagitis; K57.30 Diverticulosis of large intestine without perforation or abscess without bleeding; N18.3 Chronic kidney disease, stage 3 (moderate); I87.2 Venous insufficiency (chronic) (peripheral); N28.1 Cyst of kidney, acquired; D64.9 Anemia, unspecified; M06.9 Rheumatoid arthritis, unspecified; R73.9 Hyperglycemia, unspecified; R09.02 Hypoxemia; I08.2 Rheumatic disorders of both aortic and tricuspid valves; Z90.710 Acquired absence of both cervix and uterus; Z98.42 Cataract extraction status, left eye; Z83.3 Family history of diabetes mellitus

== ENCOUNTER 2017-02-16 12:46 | Inpatient (IN) | payer OTHER ==
[~2017-02-16] VITALS: Ht 177.8 cm; Wt 136.8 kg
--- NOTE | ~2017-02-16 | PR ---
[place], [place] PROGRESS NOTE NAME: RHETT PASTRANA UNIT #: [id number] ROOM: 401 DOCTOR: CLARIBEL HOLDEN MD BIRTHDATE: [birth year] DOS: 02/25/2017 REASON FOR VISIT: CHF and atrial fibrillation. HISTORY OF PRESENT ILLNESS: The patient is feeling better. Denies any chest pain or shortness of breath. She slept last night. No PND, no orthopnea. REVIEW OF SYSTEMS: Review of the 8 systems negative except as mentioned above. RHYTHM STRIPS: The patient is in atrial fibrillation on the monitor. PHYSICAL EXAMINATION: VITAL SIGNS: Blood pressure 106/62, pulse 92 and respiration was 18. GENERAL: Alert, comfortable, in no acute distress. HEENT: Pupils are round and equal. No jaundice. NECK: Supple, no distended neck veins, no carotid bruit. CHEST: Nontender. LUNGS: A few scattered rhonchi. HEART: Irregularly irregular, grade 1/6 systolic murmur. ABDOMEN: Bowel sounds normal. EXTREMITIES: Showed 1+ edema. Distal pulses are fair. SKIN: Warm and dry. No cyanosis, no clubbing. MEDICATIONS AND ALLERGIES: Reviewed. IMPRESSION: 1. Chronic diastolic heart failure, slowly improving. 2. Chronic atrial fibrillation, control. 3. Acute on chronic kidney disease. 4. Hypertension. RECOMMENDATIONS: 1. Continue current medications. 2. Renal consultation for adjusting her diuretics. Possible discharge to retirement in the next 24-48 hours. [place], [place] PROGRESS NOTE NAME: RHETT PASTRANA UNIT #: [id number] ROOM: 401 DOCTOR: CLARIBEL HOLDEN MD BIRTHDATE: [birth year] CLARIBEL HOLDEN MD CM:PNTRANS 1319 CLARIBEL HOLDEN MD 02/25/17 1316 interface
--- NOTE | ~2017-02-16 | PR ---
[place], [place] PROGRESS NOTE NAME: [facility]STRANA [id number] UN[facility] #: [id number] ROOM: 401 DOCTOR: CLARIBEL HOLDEN MD BIRTHDATE: [birth year] DOS: 02/24/2017 REASON FOR VISIT: Congestive heart failure. HISTORY OF PRESENT ILLNESS: The patient is feeling better. Denies any chest pain or palpitations. No dizziness, no orthopnea. REVIEW OF SYSTEMS: Review of the 8 system is negative except as mentioned above. RHYTHM STRIPS: The patient is in atrial fibrillation, rate is around 100 on the monitor. PHYSICAL EXAMINATION: VITAL SIGNS: Reviewed. GENERAL: The patient is alert, in no acute distress. HEENT: Pupils are round and equal. No jaundice. NECK: Supple, no distended neck veins, no carotid bruit. CHEST: Symmetrical, nontender. LUNGS: A few scattered rhonchi. HEART: Irregularly irregular. ABDOMEN: Benign. Bowel sounds normal. EXTREMITIES: Show positive for edema. Distal pulses are fair. SKIN: Warm and dry. No cyanosis, no clubbing. GENITOURINARY: Deferred. LABORATORY DATA: Deferred. MEDICATIONS: Reviewed. IMPRESSION: 1. Ifmwl-eq-mumndqp diastolic heart failure. 2. Chronic kidney disease. 3. Hypertension. RECOMMENDATIONS: 1. Continue current medications. Continue to monitor daily weights, ins and outs as well as renal function and blood pressures. 2. No further cardiac testing at this time. [place], [place] PROGRESS NOTE NAME: [facility] PASTRANA [facility]: [id number] UNIT #: [id number] ROOM: 401 DOCTOR: CLARIBEL HOLDEN MD BIRTHDATE: [birth year] CLARIBEL HOLDEN MD CM:PNSTACIA 11 [phone] CLARIBEL HOLDEN MD 02/24/172242 interface
--- NOTE | ~2017-02-16 | CON ---
[place], [place] REPORT OF CONSULTATION [id number] UNIT #: [id number] ROOM: 401 DOCTOR: DELL MAR MD BIRTHDATE: [birth year] DOS: REQUESTING PHYSICIAN: Dr. Holley. REASON FOR CONSULTATION: Congestive heart failure. ASSESSMENT: 1. Current presentation with recurrent shortness of breath, dyspnea on exertion and lower extremity edema. 2. Chest x-ray consistent with volume overload. 3. Similar presentation 2 weeks ago. 4. Severe bilateral lower extremity edema and lymphedema. 5. Chronic renal failure. 6. Hypertension. 7. Hyperlipidemia. 8. Chronic atrial fibrillation. 9. Normal left ventricular function on echocardiogram done in January 2017. 10. Moderate aortic stenosis. 11. Normal stress test in November 2015. 12. The patient is completely bedridden. 13. No chest pains reported. PLAN: 1. Aggressive diuresis aggressive. I will start Lasix 40 mg IV b.i.d., would carefully watch patient's renal function.. 2. Daily weights and I's and O's. 3. Low salt diet, especially at the care home. 4. Daily BMP. 5. Consider renal consultation. 6. No further cardiac testing at this time. HISTORY AND PHYSICAL: The patient is a pleasant 76-year-old female well known to our group through Dr. Ramirez. The patient carries history of congestive heart failure due to diastolic dysfunction and was seen and evaluated by Dr. Ramirez and underwent stress test in November of last year, which was normal and an echocardiogram in January of this year. The patient apparently was just discharged about 2 weeks ago with similar presentation. The patient lives in a care home. She is completely bedridden with severe bilateral lower extremity edema and lymphedema. Apparently, over the past few days, the patient started complaining of shortness of breath, dyspnea on exertion along with PND and orthopnea. The physician at the care home decided after a while that she was not responding well to her oral diuretic and transferred her back to the hospital. The patient started noticing also there was significant worsening of lower extremity edema over the past few days. No complaint of chest pain, chest pressure, heaviness or tightness. No symptomatic palpitation or any associated dizziness, lightheadedness or near syncope. No fever. No chills. No night sweats. Maintained a relatively good appetite. No weight loss. No cough. PAST MEDICAL HISTORY: As detailed in my assessment. [place], [place] REPORT OF CONSULTATION NAME: RHETT PASTRANA UNIT #: [id number] ROOM: [facility] DOCTOR: DELL MAR MD BIRTHDATE: [birth year] SOCIAL HISTORY: The patient denies tobacco, alcohol or illicit drug abuse. FAMILY HISTORY: There is no early family history of heart disease. The patient has 1 brother and 1 sister, but with no reported early heart problems. CURRENT MEDICATIONS: Bumex, Rocephin, Pepcid, Zocor, Eliquis, Pyridium, Lopressor, Restoril, bisacodyl, milk of magnesia, albuterol. ALLERGIES: The patient has no known drug allergies. REVIEW OF SYSTEMS: Currently, the patient denies any headache, diplopia or blurry vision. No fever. No chills. No night sweats. No abdominal pain. No bright red blood per rectum or tarry stools. The patient admits to joint pain and muscular pain. No anxiety. No depression. No polyuria. No polydipsia. No skin rash. Review of all other systems has been negative. PHYSICAL EXAMINATION: GENERAL: The patient is alert, oriented x3, quite pleasant, in no apparent distress. The patient sits up in bed, does not appear in any acute distress. VITAL SIGNS: Blood pressure 105/65, heart rate 87, respiratory rate of 16, temperature 97.8. HEENT: Extraocular muscles intact. Pupils equal, round and reactive to light. Conjunctivae, mild pallor. Throat, no petechiae. NECK: Good carotid upstroke. Faint bruit could be heard over both carotids. No lymphadenopathy. No thyromegaly. HEART: S1, S2 with faint systolic ejection murmur at right upper sternal border and also holosystolic murmur at the left sternal border. No rub. No retrosternal heave. Quite distant heart sounds. CHEST AND BACK: No deformities. LUNGS: Significant decrease in air movement. No wheezing. No rales. ABDOMEN: Morbidly obese, soft, nontender. Present bowel sounds. No masses. No bruits. LOWER EXTREMITIES: Severe bilateral edema and lymphedema with almost inability to palpate the distal pulses. NEUROLOGIC: Grossly nonfocal. SKIN: No significant rash, except for left lower extremity edema and chronic venous stasis could be seen in both lower extremities. LABORATORY DATA: White count 3.9, hemoglobin 10.2. Potassium 4.4, GFR 42%, alk phos 156. Troponin less than 0.015. Electrocardiogram showing atrial fibrillation with heart rate of 89, RSR prime in V1 and V2, incomplete right bundle-branch block, nonspecific ST-T changes and low voltage QRS. [place], [place] REPORT OF CONSULTATION NAME: RHETT PASTRANA UNIT #: [id number] ROOM: 401 DOCTOR: DELL MAR MD BIRTHDATE: [birth year] DELL MAR MD CM:CONSTR:REPORT OF CONSULTATION 1054 02/17/17 1341 interface
--- NOTE | ~2017-02-16 | PR ---
[place], [place] PROGRESS NOTE [id number] UNIT #: [id number] ROOM: 401 DOCTOR: SUDHIR NUNES MD BIRTHDATE: [birth year] DOS: 02/25/2017 SUBJECTIVE: The patient was seen and evaluated in followup of abnormal renal function studies and volume overload. Overall, the patient seems to be diuresing fairly well by her intake and output. She is negative 3.8 liters yesterday, but has only lost about 3 pounds. I suspect some of this is incomplete; however, she is stating that she is subjectively feeling better. Blood pressures are well controlled. She had one aberrant high reading last evening, but a recheck was back down to normal levels. She was afebrile overnight. No fevers, no chills. PHYSICAL EXAMINATION: VITAL SIGNS: 97.7, 90, 20, 118/52, 97% on 1 liter nasal cannula. GENERAL: She is awake and alert in no acute distress, pleasant mood and . Speech is clear and cogent. Sclerae are anicteric. Oropharynx is clear. Mucous membranes are moist. No JVD or lymphadenopathy. LUNGS: Decreased bilaterally, no rales or wheeze. CARDIOVASCULAR: Regular rate. No audible rub. ABDOMEN: Soft, obese, nontender. No rebound or guarding. EXTREMITIES: Lower extremity edema is still significant, lymphedema is likely somewhat chronic too. Skin is without diffuse rashes or breakdown. LABORATORIES AND DIAGNOSTICS: White blood cell count 4.9, stable, hemoglobin 9.6, platelets 141 stable, sodium 133 down slightly, potassium 3.5, chloride 84, bicarbonate 48, BUN 71, creatinine 1.23. ASSESSMENT AND PLAN: 1. Chronic kidney disease, stable prior acute injury likely volume mediated. 2. Multiple electrolyte abnormalities with ongoing needs for diuretic support for severe lower extremity edema. 3. Metabolic alcoholism is the most overt. I deferred on the Diamox actually yesterday because we changed some of her other diuretics and we decreased her Bumex and discontinued metolazone. I think she is improving and we can continue to follow this without the Diamox termination clerk. 4. nursing home success is going to have to relate on her being able to maintain dietary judiciousness of sodium as well as increased activities level and monitoring her obesity. I would recommend strict avoidance of all nephrotoxic medications, contrast agents, and NSAIDs with the ongoing diuretics. Avoid hypotensive events and EMMANUELLE inhibitors and ARBs likely as well. I would be okay with discharge her with laboratory follow up in the outpatient setting, ideally she should be weighed. I suspect she has some steatohepatitis and fatty liver disease complicating the issue as well. [place], [place] PROGRESS NOTE NAME: ACOSTA PASTRANAJORIE Kira UNIT #: [id number] ROOM: [facility] DOCTOR: SUDHIR NUNES MD BIRTHDATE: [birth year] SUDHIR NUNES MD CM:PNTRANS [id number] SUDHIR NUNES MD 02/25/17 234 interface
--- NOTE | ~2017-02-16 | PR ---
[place], [place] PROGRESS NOTE [facility]: [id number] UNIT #: [id number] ROOM: 401 DOCTOR: SUDHIR NUNES MD BIRTHDATE: [birth year] DOS: 02/24/2017 SUBJECTIVE: The patient was seen in followup of acute on chronic kidney injury with volume overload and need for diuretic support with acid base disturbances. The patient does not report any specific complaints. She continues on 2 liters nasal cannula oxygen and her vital signs were 98.3, 91, 18, 96/56 with 95% on 2 liters. She has generally been in the 90s-100s from blood pressure standpoint. Her intake and output was negative 38 and 30 and now that her Tran catheter was reinserted yesterday and is actually being monitored. PHYSICAL EXAMINATION: VITAL SIGNS: Her weight was down from 142.9 kilos to 137.9 this morning. She did have ESBL E. coli from 02/16 urine, moderate count of 75,000. It is possibly colonization. GENERAL: Pleasant, age-appropriate febrile, lying in bed with no acute distress. Speech is clear and cogent. Mood and affect are normal. HEAD AND NECK: Sclerae are anicteric. Oropharynx is clear. Mucous membranes are moist. No JVD or lymphadenopathy. LUNGS: Decreased breath sounds, no audible rales or wheeze. CARDIOVASCULAR: Regular rate. No audible rub. ABDOMEN: Obese, soft, nontender. No rebound, no guarding, no CVA tenderness. EXTREMITIES: Lower extremity edema is still present, but has improved significantly per patient and staff. Some lump edema likely is chronic in this woman. SKIN: Without diffuse rash or breakdown. LABORATORIES AND DIAGNOSTICS: White blood cell count 3.9, hemoglobin 9.7, platelets 126 and all these are stable. She had blood gas this morning with pH of 7.42, pCO2 of 72, PaO2 of 77.3. I think this was on 2 liters and base excess with 18.5. Chemistry showed sodium of 137, potassium 3.5, chloride of 85, bicarbonate level of 50 up from 42, BUN up slightly 70 and creatinine 1.23 up slightly from 1.18, glucose 92, calcium 9.2, magnesium 2.0, phosphorus 3.0, albumin 3.1. ASSESSMENT AND PLAN: Advanced electrolyte abnormalities secondary to ongoing need of diuretic support for extreme lower extremity edema. Her bicarbonate has increased. We will give her 1 dose of Diamox today and discontinue her metolazone. I do think that she needs the Bumex at the current dose; however, we will reduce the frequently from 3 times a day to 2 times a day and see if this makes any improvement. Her intake is reliably fairly good. I think we possibly can keep her off of oxygen support, perhaps she will have an increased drive to blow of some more CO2 as well, but these labs are certainly very concerning for long-term success in maintaining compensation. Her acute kidney injury on any other hand has improved significantly and I would continue to be supportive and monitor and avoid nephrotoxic medications, NSAIDs, contrast agents as able, especially with ongoing diuretics. Her other electrolytes are well replaced. Her significant alkalosis will be monitored. [place], [place] PROGRESS NOTE NAME: RHETT PASTRANA UNIT #: [id number] ROOM: [facility] DOCTOR: SUDHIR NUNES MD BIRTHDATE: [birth year] SUDHIR NUNES MD CM:PNSTACIA [id number] SUDHIR NUNES MD 02/24/172120 interface
--- NOTE | ~2017-02-16 | PR ---
[place], [place] PROGRESS NOTE NAME: RHETT PASTRANA [facility] #: [id number] UNIT #: [id number] ROOM: 401 DOCTOR: EBER MAYS MD BIRTHDATE: [birth year] DOS: 02/20/2017 CARDIOLOGY PROGRESS NOTE SUBJECTIVE: The patient was seen at her bedside today on 02/20/2017 for followup of her acute exacerbation of chronic diastolic congestive heart failure. She is a 76-year-old woman who does have a history of hypertension, permanent atrial fibrillation and normal left ventricular systolic function. She has moderate aortic stenosis, which does not appear to be symptomatic at this time, but may contribute to her diastolic heart failure. She also has lymphedema, but presents at this time with a marked increase in her leg swelling along with some dyspnea. She has been treated with intravenous bumetanide and does seem to be diuresing reasonably well. Her weight is down 3.3 kilograms since admission. Unfortunately because of enuresis, her I and O measurements are not accurate. PHYSICAL EXAMINATION: VITAL SIGNS: Today, her pulse is 116 and irregularly irregular, blood pressure is 131/70. She is afebrile. She weighs 141.6 kg and has a body mass index of 44.8. HEENT: Normocephalic, atraumatic. Extraocular muscles are intact. NECK: Supple. She does have jugular distention to the angle of jaw with hepatojugular reflux when she is sitting at a 45 degree angle in her bed. LUNGS: Respirations are unlabored. She has decreased breath sounds at the bases, but no wheezes or rales. HEART: Has an irregularly irregular rhythm without murmurs or gallops. ABDOMEN: Obese, but otherwise benign. EXTREMITIES: Showed 3+ edema bilaterally on top of chronic edema. LABORATORY DATA: Hemoglobin today is 9.6 with white count of 3900 and platelet count 113,000. Sodium is 139, potassium 3.7, BUN 66 and creatinine 0.99. IMPRESSION: 1. Acute exacerbation of chronic diastolic congestive heart failure. 2. Permanent atrial fibrillation. 3. Acute renal injury, improving. 4. Normocytic anemia. 5. Leukopenia. PLAN: We will continue to diurese her with intravenous diuretics since she still does appear to be substantially fluid overloaded. I will be adding Zaroxolyn to her regimen to help improve the efficiency of her bumetanide. We will continue to monitor her renal functions closely. I thank the hospitalist physicians for asking our advice regarding her care. [place], [place] PROGRESS NOTE NAME: RHETT PASTRANA UNIT #: [id number] ROOM: [facility] DOCTOR: EBER MAYS MD BIRTHDATE: [birth year] EBER MAYS MD CM:PNTRANS [id number] EBER MAYS MD 02/20/17 1019 interface
[~2017-02-16 12:46] MED LIST changes: +DEEP SEA44 ML NAS; +DOCUSATE SOD100 MG PO; +LASIX80 MG PO; +METOPROLOL TART50 M1 PO; +PROVENTIL HFA6.7 GM INH; +ZANTAC 150150 MG PO; +Zaroxolyn,Diul2.5 MG PO
--- NOTE | 2017-02-16 12:50 | NUR ---
REPORT CALLED FROM [facility] NURSE. REPORTS PT WEIGHED 298.2 ON 01/27 AND 321.0 ON 02/14. GLOBALIZED EDEMA. LASIX 80 MG DAILY. REPORTS PHYSICIAN WON'T INCREASE LASIX D/T DECREASED KIDNEY FXN.
[2017-02-16 13:07] VITALS: BP 104/68
[2017-02-16 13:20] LABS: BASO % 0.2 % (0.0-1.0); EOS # 0.1 10*3/uL (0.0-0.4); EOS % 1.2 % (1.0-4.0); HEMATOCRIT 34.1 % (37.0-47.0); HEMOGLOBIN 10.1 g/dl (12.0-16.0); LYMPH # 0.6 10*3/uL (1.3-4.4); LYMPH % 14.4 % (27.0-41.0); MEAN CELL VOLUME 88.6 fl (81.0-99.0); MEAN CORPUSCULAR HGB 26.2 pg (27.0-31.0); MEAN CORPUSCULAR HGB CONC 29.6 g/dl (33.0-37.0); MEAN PLATELET VOLUME 9.6 fl (9.6-12.3); MONO # 0.3 10*3/uL (0.1-1.0); MONO % 7.3 % (3.0-9.0); NEUT # 3.1 10*3/uL (2.3-7.9); NEUT % 76.4 % (47.0-73.0); PLATELET COUNT AUTOMATED 125 10*3/uL (130-400); RED BLOOD COUNT 3.85 10*6/uL (4.10-5.10); RED CELL DISTRI WIDTH 15.5 % (0-14.5); WHITE BLOOD COUNT 4.1 10*3/uL (4.8-10.8)
[2017-02-16 13:31] LABS: ACT PARTIAL THROMBO TIME 26.2 SECONDS (20.8-31.5)
[2017-02-16 13:36] LABS: ALBUMIN 3.3 gm/dl (3.1-4.5); ALKALINE PHOSPHATASE 179 U/L (45-117); BUN 82 mg/dl (7-24); CHLORIDE 95 mmol/L (98-107); CREATININE 1.54 mg/dL (0.55-1.02); POTASSIUM 4.4 mmol/L (3.5-5.1); SGOT/AST 26 IU/L (3-35); SGPT/ALT 31 U/L (12-78); SODIUM 137 mmol/L (136-145); TOTAL PROTEIN 7.5 gm/dL (6.4-8.2)
[2017-02-16 13:37] LABS: TROPONIN I < 0.015 ng/ml (<0.045)
--- NOTE | 2017-02-16 14:47 | NUR ---
PATIENT RESTING QUIETLY IN BED. NO CMOPLAINTS. SISTER AT BEDSIDE. PHYSICIAN AT BEDSIDE.
--- NOTE | 2017-02-16 15:06 | NUR ---
CONTRERAS CATHETER INSERTED. PATIENT TOLERATED WELL. PATENT. PALE YELLOW URINE.
[2017-02-16 15:20] LABS: BILIRUBIN NEGATIVE (NEGATIVE); BLOOD TRACE-LYSED (NEGATIVE); CLARITY CLEAR (CLEAR); COLOR YELLOW (YELLOW); GLUCOSE NEGATIVE (NEGATIVE); KETONE NEGATIVE (NEGATIVE); LEUKO ESTERASE 2+ (NEGATIVE); NITRITE NEGATIVE (NEGATIVE); PH 5.5 (5.0-9.0); SPECIFIC GRAVITY <= 1.005 (1.005-1.030); UROBILINOGEN 0.2 E.U./dl (0.2-1.0)
[2017-02-16 15:24] LABS: BACTERIA 1+; EPITHELIAL CELLS 0-2; RBC 0-2 rbc/hpf (0-2); WBC 21-30 wbc/hpf (0-5)
[2017-02-16 15:45] VITALS: BP 131/73
--- NOTE | 2017-02-16 19:43 | NUR ---
DR MAYS'S SERVICE WAS CALLED FOR CONSULT. ADVISED THE SERVICE OF RESIDENT AND ADMISSION STATUS. SPOKE TO GEORGINA.
[2017-02-16 20:00] VITALS: BP 124/66
--- NOTE | 2017-02-16 22:05 | NUR ---
PATIENT RESTING COMFORTABLE HAS NO COMPLAINTS AT THIS TIME.
[2017-02-17] VITALS: BP 102/59
[2017-02-17 06:06] LABS: BASO % 0.3 % (0.0-1.0); HEMOGLOBIN 10.2 g/dl (12.0-16.0); LYMPH # 0.6 10*3/uL (1.3-4.4); MEAN CELL VOLUME 90.9 fl (81.0-99.0); MEAN CORPUSCULAR HGB 26.5 pg (27.0-31.0); MEAN CORPUSCULAR HGB CONC 29.1 g/dl (33.0-37.0); MEAN PLATELET VOLUME 9.4 fl (9.6-12.3); MONO # 0.3 10*3/uL (0.1-1.0); NEUT # 2.9 10*3/uL (2.3-7.9); NEUT % 74.4 % (47.0-73.0); PLATELET COUNT AUTOMATED 114 10*3/uL (130-400); RED BLOOD COUNT 3.85 10*6/uL (4.10-5.10); RED CELL DISTRI WIDTH 15.3 % (0-14.5); WHITE BLOOD COUNT 3.9 10*3/uL (4.8-10.8)
[2017-02-17 06:34] LABS: ALBUMIN 3.3 gm/dl (3.1-4.5); CREATININE 1.25 mg/dL (0.55-1.02); PHOSPHOROUS 4.3 mg/dL (2.5-4.9); POTASSIUM 4.4 mmol/L (3.5-5.1); TOTAL PROTEIN 7.3 gm/dL (6.4-8.2)
[2017-02-17 08:00] VITALS: BP 105/65
--- NOTE | 2017-02-17 08:00 | NUR ---
PT RESTING IN BED. RESP EASY AND REGULAR 3L NC INTACT. ABDM. SOFT/OBESE NORMOACTIVE X4 QUADS. CONTRERAS CATHETER IN PLACE AND PATENT FOR STRAW URINE. BLE PITTING EDEMA NOTED. DENIES C/O AT THIS TIME. CALL LIGHT IN REACH. WILL MONITOR.
[2017-02-17 12:00] VITALS: BP 131/68
--- NOTE | 2017-02-17 15:40 | NUR ---
DR NUNES'S ANSWERING SERVICE NOTIFIED OF CONSULT.
[2017-02-17 16:00] VITALS: BP 119/61
--- NOTE | 2017-02-17 17:05 | NUR ---
TYLENOL GIVEN FOR C/O HEADACHE. WILL MONITOR.
--- NOTE | 2017-02-17 18:10 | NUR ---
TYLENOL EFFECTIVE PER PT.
[2017-02-17 20:00] VITALS: BP 125/74
--- NOTE | 2017-02-17 20:08 | NUR ---
1930 RESTING IN BED WITH HOB ELEVATED. SIDE RAILS UP X'S 2. HEP LOCK INTACT. ALERT AND PLEASANT. CONTRERAS PATENT AND PATENT YELLOW URINE WITH SEDIMENT. 4+ EDEMA CONT OF LOWER EXTREMITIES. NO C/O'S VOICED AT PRESENT. NO DISRESS NOTED.
--- NOTE | 2017-02-17 22:12 | NUR ---
REPOSITIONED FOR COMFORT. 02 INTACT. REMAINS WITHOUT C/O'S. CONDITION GUARDED.
--- NOTE | 2017-02-17 23:26 | NUR ---
2300 PT. RESTING AT THIS TIME, ALERT AND ORIENTED X3. PT. CURRENTLY DENIES SOB AT REST, CP, OR PAIN. CALL LIGHT WITHIN REACH, BED IN LOWEST POSITION, WHEELS LOCKED.
[2017-02-18] VITALS: BP 117/63
--- NOTE | 2017-02-18 01:41 | NUR ---
24 HR CHART CHECK COMPLETE
[2017-02-18 06:00] LABS: BASO % 0.2 % (0.0-1.0); EOS # 0.1 10*3/uL (0.0-0.4); EOS % 1.7 % (1.0-4.0); HEMOGLOBIN 10.1 g/dl (12.0-16.0); LYMPH # 0.5 10*3/uL (1.3-4.4); LYMPH % 11.6 % (27.0-41.0); MEAN CELL VOLUME 92.1 fl (81.0-99.0); MEAN CORPUSCULAR HGB 26.6 pg (27.0-31.0); MEAN CORPUSCULAR HGB CONC 28.9 g/dl (33.0-37.0); MEAN PLATELET VOLUME 9.8 fl (9.6-12.3); MONO # 0.3 10*3/uL (0.1-1.0); MONO % 8.1 % (3.0-9.0); NEUT # 3.3 10*3/uL (2.3-7.9); NEUT % 77.9 % (47.0-73.0); PLATELET COUNT AUTOMATED 120 10*3/uL (130-400); RED CELL DISTRI WIDTH 15.3 % (0-14.5); WHITE BLOOD COUNT 4.2 10*3/uL (4.8-10.8)
[2017-02-18 06:27] LABS: CREATININE 1.16 mg/dL (0.55-1.02); PHOSPHOROUS 3.9 mg/dL (2.5-4.9); POTASSIUM 4.5 mmol/L (3.5-5.1)
[2017-02-18 08:00] VITALS: BP 120/62
[2017-02-18] MEDS ORDERED: LOSARTAN POTASS25 M1 PO (09:03)
[2017-02-18] MEDS ORDERED: VENTOLIN HFA INH (09:04)
--- NOTE | 2017-02-18 09:06 | NUR ---
MED REC COMPLETE AT THIS TIME.
[2017-02-18 12:00] VITALS: BP 92/52
--- NOTE | 2017-02-18 12:50 | NUR ---
PATIENT MEDICATED WITH TYLNEOL AT THIS TIME FOR COMPLAINTS OF HEADACHE. WILL MONITOR.
[2017-02-18 16:00] VITALS: BP 110/58
[2017-02-18 20:00] VITALS: BP 126/64
--- NOTE | 2017-02-18 20:05 | NUR ---
0 RESTING IN BED WATCHING TV. ALERT AND PLEASANT. 02 INTACT. NO DISTRESS NOTED. HEP LOCK INTACT. INCONTINENT OF LARGE AMOUNT URINE. ADULT DIAPER CHANGED,CONNIE CARE DONE AND PT REPOSITIONED. PT STATES THAT SHE CANNOT USE THE BEDPAN, IT'S JUST EASIER TO CHANGE HER DIAPER. HOB ELEVATED. CALL LIGHT IN REACH.
--- NOTE | 2017-02-18 21:34 | NUR ---
2125 TYLENOL 2 PO FOR C/O'S H/A. WILL MONITOR.
--- NOTE | 2017-02-18 22:03 | NUR ---
EARLIER TYLENOL EFFECTIVE. INCONTINENT OF LARGE AMOUNT URINE. CONNIE CARE DONE AND PADS CHANGED. 02 INTACT. EDEMA CONT OF LOWER EXTREMITIES FEET TO THIGHS. CONDITION GUARDED.
[2017-02-19] VITALS: BP 101/54
--- NOTE | 2017-02-19 | NUR ---
ASSUMED CARE OF PATIENT. ASSESSMENT COMPLETE. RESTING IN BED. NO VOICED COMPLAINTS. CALL LIGHT IN REACH. WILL CONTINUE TO MONITOR.
--- NOTE | 2017-02-19 02:22 | NUR ---
SLEEPING. RESP EASY AND NONLABORED ON 2L NC. NO DISTRESS NOTED. CALL LIGHT IN REACH. WILL CONTINUE TO MONITOR.
[2017-02-19 04:00] VITALS: BP 106/62
[2017-02-19 06:20] LABS: BASO % 0.5 % (0.0-1.0); EOS # 0.1 10*3/uL (0.0-0.4); EOS % 2.1 % (1.0-4.0); HEMATOCRIT 33.5 % (37.0-47.0); HEMOGLOBIN 9.7 g/dl (12.0-16.0); LYMPH # 0.6 10*3/uL (1.3-4.4); LYMPH % 14.7 % (27.0-41.0); MEAN CELL VOLUME 90.3 fl (81.0-99.0); MEAN CORPUSCULAR HGB 26.1 pg (27.0-31.0); MEAN PLATELET VOLUME 9.5 fl (9.6-12.3); MONO # 0.4 10*3/uL (0.1-1.0); MONO % 9.4 % (3.0-9.0); NEUT # 3.2 10*3/uL (2.3-7.9); NEUT % 72.8 % (47.0-73.0); PLATELET COUNT AUTOMATED 107 10*3/uL (130-400); RED BLOOD COUNT 3.71 10*6/uL (4.10-5.10); RED CELL DISTRI WIDTH 15.3 % (0-14.5); WHITE BLOOD COUNT 4.4 10*3/uL (4.8-10.8)
[2017-02-19 06:28] LABS: BUN 75 mg/dl (7-24); CHLORIDE 94 mmol/L (98-107); CREATININE 1.04 mg/dL (0.55-1.02); SODIUM 141 mmol/L (136-145)
[2017-02-19 08:00] VITALS: BP 116/41
--- NOTE | 2017-02-19 08:00 | NUR ---
RESTING IN BED. RESP EASY AND REGULAR, 2L NC INTACT. DENIES C/O AT THIS TIME. CALL LIGHT WITHIN REACH. WILL CONTINUE TO MONITOR.
--- NOTE | 2017-02-19 08:00 | NUR ---
PEAR PICKER VS. PT COMES FROM [facility]. ILL CHECK FOR RETURN NEEDS. PT PLANS TO RETURN.
--- NOTE | 2017-02-19 08:27 | NUR ---
Patient is LTC at [facility] and can return when medically stable for discharge.
--- NOTE | 2017-02-19 09:33 | NUR ---
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 No PT skills or needs at the present time. Request pnt be transferred via [facility] and return to [facility] as able. PT order canceled. Lorena Donald, PT
[2017-02-19 12:00] VITALS: BP 120/56
[2017-02-19 16:00] VITALS: BP 130/65
[2017-02-19 20:00] VITALS: BP 118/64
--- NOTE | 2017-02-19 20:00 | NUR ---
ASSUMED CARE OF PATIENT. ASSESSMENT COMPLETE. RESTING IN BED. NO VOICED COMPLAINTS. CALL LIGHT IN REACH. WILL CONTINUE TO MONITOR.
--- NOTE | 2017-02-19 21:36 | NUR ---
PT RECEIVED TYLENOL FOR PAIN RATED 5/10.
--- NOTE | 2017-02-19 22:45 | NUR ---
PT CLAIMS PAIN HAS REDUCED. RATES PAIN 2/10.
[2017-02-20] VITALS: BP 102/55
--- NOTE | 2017-02-20 02:00 | NUR ---
SLEEPING. NO DISTRESS NOTED. O2 INTACT. BED ALARM ON. CALL LIGHT IN REACH. WILL CONTINUE TO MONITOR.
[2017-02-20 06:23] LABS: BASO % 0.5 % (0.0-1.0); EOS # 0.1 10*3/uL (0.0-0.4); EOS % 2.1 % (1.0-4.0); HEMATOCRIT 32.1 % (37.0-47.0); HEMOGLOBIN 9.6 g/dl (12.0-16.0); LYMPH # 0.6 10*3/uL (1.3-4.4); LYMPH % 16.6 % (27.0-41.0); MEAN CELL VOLUME 89.9 fl (81.0-99.0); MEAN CORPUSCULAR HGB 26.9 pg (27.0-31.0); MEAN CORPUSCULAR HGB CONC 29.9 g/dl (33.0-37.0); MEAN PLATELET VOLUME 9.7 fl (9.6-12.3); MONO # 0.4 10*3/uL (0.1-1.0); MONO % 10.1 % (3.0-9.0); NEUT # 2.7 10*3/uL (2.3-7.9); NEUT % 70.2 % (47.0-73.0); PLATELET COUNT AUTOMATED 113 10*3/uL (130-400); RED BLOOD COUNT 3.57 10*6/uL (4.10-5.10); RED CELL DISTRI WIDTH 15.1 % (0-14.5); WHITE BLOOD COUNT 3.9 10*3/uL (4.8-10.8)
[2017-02-20 06:38] LABS: BUN 66 mg/dl (7-24); CHLORIDE 91 mmol/L (98-107); CREATININE 0.99 mg/dL (0.55-1.02); POTASSIUM 3.7 mmol/L (3.5-5.1); SODIUM 139 mmol/L (136-145)
--- NOTE | 2017-02-20 06:41 | NUR ---
LAB CALLED CRITICAL CO2 42, CALLED AND MADE DR LU AWARE. NO ORDERS RECEIVED.
[2017-02-20 08:00] VITALS: BP 126/68; BP 131/70
[2017-02-20 12:00] VITALS: BP 132/71
--- NOTE | 2017-02-20 12:00 | NUR ---
PATIENT HAS BEEN PLEASANT AND COOPERATIVE THROUGHOUT THE MORNING. PATIENT DENIES ANY PAIN OR DISCOMFORT. PATIENT REPORTS HAVING A FEW EPISODES OF FEELING SOB, BUT RESPS ARE EASY AND UNLABORED. PATIENT HAS NO FURTHER REQUESTS AT THIS TIME. HOB IS ELEVATED, SEE SHIFT ASSESSMENT, CALL LIGHT IS WITHIN REACH.
--- NOTE | 2017-02-20 13:32 | NUR ---
Faxed progress notes and updates to [facility] for review.
[2017-02-20 16:00] VITALS: BP 96/66
--- NOTE | 2017-02-20 18:08 | NUR ---
PATIENT HAS BEEN PLEASANT AND COOPERATIVE THROUGHOUT SHIFT. PATIENT HASN'T HAD ANY FURTHER EPISODES OF DYSPNEA OR SOB. PATIENT IS IN CONTACT ISOLATION, DENIES AND PAIN OR DISCOMFORT. PATIENT IS BEDFAST BUT IS ABLE TO REPOSITION WITH ASSISTANCE. HOB IS ELEVATED, SKIN IS WARM, DRY AND INTACT. 4+ PITTING EDEMA IN LOWER EXTREMITIES WITH FAITN PEDAL PULSES. PATIENT IS INCONTINENT OF URINE. CALL LIGHT SYSTEM REIFORCED FOR TOILETING AND ASSISTANCE. SEE SHIFT ASSESSMENT.
[2017-02-20 20:00] VITALS: BP 112/65
--- NOTE | 2017-02-20 21:45 | NUR ---
PT RECEIVED TYLENOL FOR GENERALIZED ACHES RATED 4/10.
--- NOTE | 2017-02-20 22:45 | NUR ---
PT STATES PAIN MEDS WERE EFFECTIVE.
[2017-02-21] VITALS: BP 95/59
--- NOTE | 2017-02-21 02:00 | NUR ---
SLEEPING. RESP EASY AND NONLABORED. O2 INTACT. NO DISTRESS NOTED. CALL LIGHT IN REACH. WILL CONTINUE TO MONITOR.
[2017-02-21 07:50] LABS: BUN 59 mg/dl (7-24); CHLORIDE 89 mmol/L (98-107); CREATININE 0.99 mg/dL (0.55-1.02); POTASSIUM 3.6 mmol/L (3.5-5.1); SODIUM 139 mmol/L (136-145)
[2017-02-21 08:00] VITALS: BP 108/58
--- NOTE | 2017-02-21 08:10 | NUR ---
PATIENT IS RESTING COMFORTABLY IN BED. PATIENT IS MAX ASSIST AND UNABLE TO AMBULATE, SKIN IS W/D/I, LOWER BACK AND BOTTOM SLIGHTLY RED BUT BLANCHABLE. PATIENT HAS URGE TO HAVE BOWEL MOVEMENT BUT IS HAVING TROUBLE GOING. SOME STOOL WAS DIGITALLY REMOVED AND DULCOLAX WAS GIVEN. PATIENT IS GETTING 2LPM VIA NC AND DENIES ANY SOB THIS MORNING. NO PAIN OR DISCOMFORT. HOB IS ELEVATED. CALL LIGHT IS WITHIN REACH, SEE SHIFT ASSESSMENT
--- NOTE | 2017-02-21 11:56 | NUR ---
PATIENT IS LAYING IN BED. PATIENT IS TIRED AND LETHARGIC BUT RESPONDS AND IS COOPERATIVE UPON ASSESSMENT. PATIENT DENIES ANY PAIN OR DISCOMFORT. PATIENT DENIES SOB AND IS STILL RECEIVING 2LPM VIA NC. HOB ELEVATED, CALL LIGHT SYSTEM REINFORCED, MAX ASSIST, SEE SHIFT ASSESSMENT.
[2017-02-21 12:00] VITALS: BP 105/58
[2017-02-21 16:00] VITALS: BP 119/60
--- NOTE | 2017-02-21 18:12 | NUR ---
PATIENT IS LAYING DOWN IN BED. PATIENT HAS BEEN ABLE TO EAT 100% OF MEALS THROUGHOUT THE DAY AND DENIES ANY N/V/D. PATIENT HAS BEEN ABLE TO HAVE TWO SMALL BOWEL MOVEMENTS THROUGHOUT THE DAY. PATIENT DENIES ANY PAIN OR DISCOMFORT AT THIS TIME. PATIENT IS RECEIVING HUMIDIFIED O2 AT 2LPM VIA NC. PATIENT IS BEDFAST AND NEEDS MAX ASSIST WITH REPOSITIONING. CALL LIGHT IS WITHING REACH, HOB ELEVATED. SEE SHIFT ASSESSMENT.
[2017-02-21 20:00] VITALS: BP 94/53
--- NOTE | 2017-02-21 20:05 | NUR ---
1930 RESTING IN BED WITH HOB ELEVATED. SIDE RAILS UP X'S 2. CALL LIGHT IN REACH. HEP LOCK INTACT. PT IS ALERT AND ORIENTED. NO C/O'S VOICED. NO DISTRESS NOTED.
--- NOTE | 2017-02-21 21:44 | NUR ---
2109 TYLENOL 2 PO GIVEN FOR C/O'S H/A. DOES NOT RATE. WILL MONITOR.
--- NOTE | 2017-02-21 22:02 | NUR ---
EARLIER TYLENOL EFFECTIVE. RESTING IN BED READING. CONDITION GUARDED.
[2017-02-22] VITALS: BP 91/48
--- NOTE | 2017-02-22 02:27 | NUR ---
PATIENT RESTING IN BED WITH EYES CLOSED. RESPS EASY AND REGULAR ON NASAL CANNULA. BED IN LOWEST POSITION, CALL LIGHT IN REACH
[2017-02-22 06:11] LABS: BASO % 0.7 % (0.0-1.0); EOS # 0.1 10*3/uL (0.0-0.4); EOS % 2.7 % (1.0-4.0); HEMATOCRIT 31.8 % (37.0-47.0); HEMOGLOBIN 9.4 g/dl (12.0-16.0); LYMPH # 0.7 10*3/uL (1.3-4.4); MEAN CELL VOLUME 90.1 fl (81.0-99.0); MEAN CORPUSCULAR HGB 26.6 pg (27.0-31.0); MEAN CORPUSCULAR HGB CONC 29.6 g/dl (33.0-37.0); MEAN PLATELET VOLUME 9.5 fl (9.6-12.3); MONO # 0.4 10*3/uL (0.1-1.0); MONO % 9.1 % (3.0-9.0); NEUT # 2.8 10*3/uL (2.3-7.9); NEUT % 69.3 % (47.0-73.0); PLATELET COUNT AUTOMATED 128 10*3/uL (130-400); RED BLOOD COUNT 3.53 10*6/uL (4.10-5.10); RED CELL DISTRI WIDTH 15.2 % (0-14.5); WHITE BLOOD COUNT 4.1 10*3/uL (4.8-10.8)
[2017-02-22 06:15] LABS: CREATININE 1.17 mg/dL (0.55-1.02); POTASSIUM 3.5 mmol/L (3.5-5.1)
--- NOTE | 2017-02-22 06:20 | NUR ---
DR LU AWARE OF CRITICAL CARBON DIOXIDE OF 42. NO NEW ORDERS
[2017-02-22 08:00] VITALS: BP 117/44
--- NOTE | 2017-02-22 08:00 | NUR ---
PATIENT IS RESTING COMFORTABLY IN BED. PATIENT WAS CONCERNED THAT SHE HAD NO WEIGHT CHANGE FROM YESTERDAY. PT IS A DAILY WEIGHT, ALERT AND ORIENTED, BUT BEDFAST. PATIENT IS A MAX ASSIST ANF INCONTINENT OF URINE. PATIENT DENIES ANY PAIN OR DISCOMFORT AT THIS TIME. CALL LIGHT IS WITHIN REACH, SEE SHIFT ASSESSMENT.
--- NOTE | 2017-02-22 12:05 | NUR ---
CALLED DR. BRUSH ANSWERING SERVICE THEY WILL NOTIFY OF CONSULT.
--- NOTE | 2017-02-22 12:30 | NUR ---
RESTING IN BED. RESP-EASY AND REGULAR. OXYGEN IN USE. CALL LIGHT IN REACH.
[2017-02-22 13:00] VITALS: BP 130/72
--- NOTE | 2017-02-22 13:50 | NUR ---
PT POSITIONED AND PREPPED WITH STERILE PROTOCOL FOR CONTRERAS INSERTION PER DR. IGLESIAS. PT HAS 100CC CLEAR YELLOW URINE AFTER INSERTION. PT TOLERATED PROCEDURE WITH NO PROBLEM. PT BATHED UP AND POSITIONED IN BED. CALL LIGHT IN REACH.
[2017-02-22 16:00] VITALS: BP 103/79
--- NOTE | 2017-02-22 16:35 | NUR ---
PATIENT RESTING COMFORTABLY IN BED. PATIENT DENIES ANY PAIN OR DISCOMFORT. PATIENT IS RECEIVING 2LPM VIA NASAL CANNULA. PATIENT IS BEDFAST AND MAX ASSIST ON REPOSITIONING. +3 PITTING EDEMA IN BILAT LE. PATIENT HAS BEEN PLEASANT AND COOPERATIVE UPON ASSESSMENT. PATIENT HAS NO FURTHER REQUESTS AT THIS TIME. CALL LIGHT IS WITHIN REACH. SEE SHIFT ASSESSMENT.
--- NOTE | 2017-02-22 18:40 | NUR ---
patient is resting in bed. patient has been pleasant and cooperative throughout the shift. patient had no complaints at this time. call light is within reach. see shift assessment.
[2017-02-22 20:00] VITALS: BP 99/61
--- NOTE | 2017-02-22 20:04 | NUR ---
1939 RESTING IN BED WATCHING TV. ALERT AND PLEASANT. 02 INTACT. HOB ELEVATED. SIDE RAILS UP X'S 2. NO DISTRESS NOTED. RESPIRATIONS EASY. 3+ EDEMA CONT FEET TO HIPS BILATERALLY.
--- NOTE | 2017-02-22 22:04 | NUR ---
2114 MEDICATED WITH TYLENOL 2 PO FOR C/O'S H/A. WILL MONITOR. 2203 EARLIER MED EFFECTIVE. RESTING IN BED READING. BEN PATENT. CONDITION GUARDED.
[2017-02-23] VITALS: BP 95/53
--- NOTE | 2017-02-23 02:55 | NUR ---
24 HR chart check completed.
[2017-02-23 06:52] LABS: BASO % 0.5 % (0.0-1.0); EOS # 0.1 10*3/uL (0.0-0.4); EOS % 2.1 % (1.0-4.0); HEMATOCRIT 32.2 % (37.0-47.0); HEMOGLOBIN 9.7 g/dl (12.0-16.0); LYMPH # 0.7 10*3/uL (1.3-4.4); LYMPH % 17.3 % (27.0-41.0); MEAN CELL VOLUME 88.7 fl (81.0-99.0); MEAN CORPUSCULAR HGB 26.7 pg (27.0-31.0); MEAN CORPUSCULAR HGB CONC 30.1 g/dl (33.0-37.0); MEAN PLATELET VOLUME 9.5 fl (9.6-12.3); MONO # 0.4 10*3/uL (0.1-1.0); MONO % 9.3 % (3.0-9.0); NEUT # 2.7 10*3/uL (2.3-7.9); NEUT % 69.8 % (47.0-73.0); PLATELET COUNT AUTOMATED 126 10*3/uL (130-400); RED BLOOD COUNT 3.63 10*6/uL (4.10-5.10); WHITE BLOOD COUNT 3.9 10*3/uL (4.8-10.8)
[2017-02-23 07:27] LABS: ALBUMIN 3.2 gm/dl (3.1-4.5); CREATININE 1.18 mg/dL (0.55-1.02); PHOSPHOROUS 3.5 mg/dL (2.5-4.9); POTASSIUM 3.5 mmol/L (3.5-5.1)
[2017-02-23 08:00] VITALS: BP 110/68
--- NOTE | 2017-02-23 10:57 | NUR ---
MOM AND BISCODYL PER REQUEST FOR INABILITY OF HAVINGA "GOOD" BM
[2017-02-23 12:00] VITALS: BP 112/68
--- NOTE | 2017-02-23 12:58 | NUR ---
pt incontinent for large formed bm
--- NOTE | 2017-02-23 14:19 | NUR ---
PT INC OF VERY LARG AMOUNT STOOL, MAKES NO ATTEMPT TO USE BEDPAN, ACTUALLY GRUNTS TO POOP MORE SHE IS BEING CLEANED UP, AND MAKES NO ATTEMPT TO HELP TURN OR REPOSITION, VERY DEMANDING AFTER BEING CLEANED UP, LAXATIVES EFFECTIVE
--- NOTE | 2017-02-23 15:37 | NUR ---
Faxed progress notes to [facility]. Patient is LTC and can return when medically stable for discharge.
[2017-02-23 16:00] VITALS: BP 103/64
[2017-02-23 20:00] VITALS: BP 111/62
--- NOTE | 2017-02-23 23:09 | NUR ---
PATIENT GIVEN TYLENOL PER ORDER FOR HEADACHE DOES NOT RATE.
[2017-02-24] VITALS (7 sets, daily range): BP systolic 96–182; BP diastolic 55–86
--- NOTE | 2017-02-24 06:08 | NUR ---
NOTIFIED OF HIGH VANC TROUGH. WILL NOT GIVE VANCO.
[2017-02-24 06:11] LABS: ALBUMIN 3.1 gm/dl (3.1-4.5); CREATININE 1.23 mg/dL (0.55-1.02); PHOSPHOROUS 3.3 mg/dL (2.5-4.9); POTASSIUM 3.5 mmol/L (3.5-5.1)
--- NOTE | 2017-02-24 06:37 | NUR ---
NOTIFIED OF CRITICAL CO2 LEVEL OF 50. RAYMOND LCONINUE TO MONITOR PT.
--- NOTE | 2017-02-24 06:46 | NUR ---
Shift chart check completed.
--- NOTE | 2017-02-24 06:57 | NUR ---
ATTEMPTED TO CALL DR. NUNES REQUESTED BY HOPITALIST. ANSWERING SERVICE WAS ABLE TO RECIEVE. DR. NUNES HAS NOT CALLED BACK YET. WILL CONINUE TO MONITOR PT.
[2017-02-24 06:59] LABS: ABG BASE EXCESS 18.5 mmol/L (-2.0-2.0); ABG HCO3 46.1 mmol/l (22-26); ARTERIAL BLOOD GAS PH 7.421 (7.35-7.45); ARTERIAL BLOOD GAS PO2 77.3 mmHg (80-90)
[2017-02-24 07:01] LABS: ARTERIAL BLOOD GAS PCO2 71.8 mmHg (35-45)
--- NOTE | 2017-02-24 07:04 | NUR ---
CALLED HOSPITALIST ABOUT HIGH CO2 LEVEL. WILL BE UP TO ASSESS PT. WILL CONINUE TO MONITOR.
--- NOTE | 2017-02-24 07:50 | NUR ---
DR HALL HERE AND CASE DISCUSSED
--- NOTE | 2017-02-24 07:59 | NUR ---
SPOKE WITH DR NUNES - HARRIS TO DC ZAROXOLYN & TO DECREASE THE BUMEX TO BID. LABS REVIEWED.
--- NOTE | 2017-02-24 11:44 | NUR ---
OXYGEN REMOVED PER REQUEST OF DR NUNES SINCE 1100. PULSE OX NOW BOUNCING BTW 85-88%. NC1L PLACED BACK ON THE PATIENT.
--- NOTE | 2017-02-24 13:30 | NUR ---
PT AWOKE TO TAKE PILL BUT REFUSED IV RESTART AT THIS TIME
--- NOTE | 2017-02-24 15:06 | NUR ---
IV TO RIGHT HAND DISCONTINUED AFTER OUTDATED & PATIENT ONCE AGAIN EXPLAINED REASON. IV started left hand with #22 protective cath after 1 attempts. Site prepped with Chloroprep. Sterile dressing applied. Patient tolerated procedure well. FRANCISCO HILTON
--- NOTE | 2017-02-24 22:00 | NUR ---
PT GIVEN TYLENOL PRN FOR PAIN. WILL CONITINUE TO MONITOR.
[2017-02-25] VITALS: BP 124/68
[2017-02-25 01:00] VITALS: BP 124/68
[2017-02-25 06:30] LABS: BASO % 0.2 % (0.0-1.0); EOS # 0.2 10*3/uL (0.0-0.4); EOS % 3.1 % (1.0-4.0); HEMOGLOBIN 9.6 g/dl (12.0-16.0); LYMPH # 0.7 10*3/uL (1.3-4.4); LYMPH % 13.9 % (27.0-41.0); MEAN CORPUSCULAR HGB 26.1 pg (27.0-31.0); MEAN PLATELET VOLUME 9.8 fl (9.6-12.3); MONO # 0.4 10*3/uL (0.1-1.0); MONO % 7.8 % (3.0-9.0); NEUT # 3.6 10*3/uL (2.3-7.9); NEUT % 74.6 % (47.0-73.0); PLATELET COUNT AUTOMATED 141 10*3/uL (130-400); RED BLOOD COUNT 3.68 10*6/uL (4.10-5.10); RED CELL DISTRI WIDTH 14.8 % (0-14.5); WHITE BLOOD COUNT 4.9 10*3/uL (4.8-10.8)
--- NOTE | 2017-02-25 06:45 | NUR ---
Shift chart check completed.
[2017-02-25 07:09] LABS: ALBUMIN 3.2 gm/dl (3.1-4.5); CREATININE 1.23 mg/dL (0.55-1.02); POTASSIUM 3.5 mmol/L (3.5-5.1)
--- NOTE | 2017-02-25 07:50 | NUR ---
ASSESSMENT DONE - PT EATING BREAKFAST - VESSEL SPECIALIST FOR HOSPITALISTS ROUNDED & LABS/MEDS DISCUSSED. BEN PATENT FOR STRAW URINE
[2017-02-25 08:00] VITALS: BP 106/62
--- NOTE | 2017-02-25 08:50 | NUR ---
CALL PLACED TO [facility] ABOUT MED CLARIFICATION
--- NOTE | 2017-02-25 08:57 | NUR ---
DR NUNES CALLED IN - HOLD DIAMOX FOR NOW. NO FURTHER CHANGES TO TREATMENT
[2017-02-25 12:00] VITALS: BP 118/52
--- NOTE | 2017-02-25 14:22 | NUR ---
DR NUNES HERE - PATIENT EXAMINED & MEDS/DC PLAN DISCUSSED
[2017-02-25 16:00] VITALS: BP 140/54
[2017-02-25 20:00] VITALS: BP 114/63
--- NOTE | 2017-02-25 22:30 | NUR ---
PT RESTING QUIETLY IN BED. REFUSING TO TURN ON SIDE. TYLENOL EFFECTIVE FOR PAIN RELIEF.
[2017-02-26] VITALS: BP 87/50
--- NOTE | 2017-02-26 03:08 | NUR ---
24 HR chart check completed.
--- NOTE | 2017-02-26 04:52 | NUR ---
PT RESTING QUIETLY IN BED WITH EYES CLOSED. NO S/S OF DISTRESS NOTED. CALL LIGHT IN REACH.
[2017-02-26 06:22] LABS: ALBUMIN 3.2 gm/dl (3.1-4.5); CREATININE 1.38 mg/dL (0.55-1.02); POTASSIUM 3.3 mmol/L (3.5-5.1)
--- NOTE | 2017-02-26 06:52 | NUR ---
DR. AGUILAR NOTIFIED OF CRITICAL CO2 LEVEL OF 45. NO N.O. RCVD.
[2017-02-26] MEDS ORDERED: K-TAB20 MEQ PO (07:01)
[2017-02-26] MEDS ORDERED: BUMETANIDE1 MG PO (07:01)
[2017-02-26 08:00] VITALS: BP 96/54
[2017-02-26] MEDS ORDERED: Lopressor25 MG PO (10:01)
--- NOTE | 2017-02-26 10:59 | NUR ---
Patient is being discharged to [facility], transportation scheduled for 1:30 PM with [facility]. NH and nursing notified.
[2017-02-26 12:00] VITALS: BP 106/56
--- NOTE | 2017-02-26 13:40 | NUR ---
leiva catheter removed, heplock removed, director of pediatric rehabilitation removed. nurse to nurse report given to bianka garcia [facility].
--- NOTE | 2017-02-26 13:45 | NUR ---
Discharge instructions reviewed with patient/family. Patient receptive and verbalizes understanding. Follow-up care arranged. Written instructions given to patient/family. KINSEY CHARLES
== END 2017-02-26 13:45 | disposition home or self-care (01) | DRG 291 ==
LOC: ED 12:46 → EDHOLD 14:22 → 4E 14:22
PROVIDERS: Family Medicine; Internal Medicine; Internal Medicine Cardiovascular Disease; Internal Medicine Nephrology; Nurse Practitioner Family; Student in an Organized Health Care Education/Training Program; ADMIT Internal Medicine
DX: I13.0 Hypertensive heart and chronic kidney disease with heart failure and stage 1 through stage 4 chronic kidney disease, or unspecified chronic kidney disease (principal); N17.0 Acute kidney failure with tubular necrosis; E44.0 Moderate protein-calorie malnutrition; D61.818 Other pancytopenia; D68.59 Other primary thrombophilia; E83.41 Hypermagnesemia; E66.01 Morbid (severe) obesity due to excess calories; E87.8 Other disorders of electrolyte and fluid balance, not elsewhere classified; N18.3 Chronic kidney disease, stage 3 (moderate); I50.33 Acute on chronic diastolic (congestive) heart failure; N39.0 Urinary tract infection, site not specified; Z68.42 Body mass index [BMI] 45.0-49.9, adult; I48.2 Chronic atrial fibrillation; D64.9 Anemia, unspecified; D72.810 Lymphocytopenia; E78.5 Hyperlipidemia, unspecified; I89.0 Lymphedema, not elsewhere classified; I35.0 Nonrheumatic aortic (valve) stenosis; K21.9 Gastro-esophageal reflux disease without esophagitis; I87.2 Venous insufficiency (chronic) (peripheral); R73.9 Hyperglycemia, unspecified; R26.2 Difficulty in walking, not elsewhere classified; F10.20 Alcohol dependence, uncomplicated; B96.20 Unspecified Escherichia coli [E. coli] as the cause of diseases classified elsewhere; Z99.81 Dependence on supplemental oxygen; Z79.899 Other long term (current) drug therapy; Z90.710 Acquired absence of both cervix and uterus; Z98.42 Cataract extraction status, left eye; Z83.3 Family history of diabetes mellitus

== ENCOUNTER 2017-08-23 21:06 | Emergency (ER) | payer OTHER ==
[~2017-08-23] VITALS: Ht 165.1 cm; Wt 136.1 kg
[~2017-08-23 21:06] MED LIST changes: +K-TAB20 MEQ PO; +LOSARTAN POTASS25 M1 PO; +Lopressor25 MG PO; +VENTOLIN HFA INH
[2017-08-23 21:10] VITALS: BP 145/60
[2017-08-23 21:41] LABS: BASO % 0.3 % (0.0-1.0); EOS # 0.1 10*3/uL (0.0-0.4); HEMATOCRIT 34.3 % (37.0-47.0); HEMOGLOBIN 10.7 g/dl (12.0-16.0); LYMPH # 0.9 10*3/uL (1.3-4.4); LYMPH % 16.2 % (27.0-41.0); MEAN CELL VOLUME 85.1 fl (81.0-99.0); MEAN CORPUSCULAR HGB 26.6 pg (27.0-31.0); MEAN CORPUSCULAR HGB CONC 31.2 g/dl (33.0-37.0); MEAN PLATELET VOLUME 8.9 fl (9.6-12.3); MONO # 0.5 10*3/uL (0.1-1.0); MONO % 8.4 % (3.0-9.0); NEUT # 4.2 10*3/uL (2.3-7.9); NEUT % 73.4 % (47.0-73.0); PLATELET COUNT AUTOMATED 164 10*3/uL (130-400); RED BLOOD COUNT 4.03 10*6/uL (4.10-5.10); RED CELL DISTRI WIDTH 13.8 % (0-14.5); WHITE BLOOD COUNT 5.7 10*3/uL (4.8-10.8)
[2017-08-23 21:55] LABS: ALBUMIN 3.5 gm/dl (3.1-4.5); CREATININE 1.11 mg/dL (0.55-1.02); POTASSIUM 4.5 mmol/L (3.5-5.1); TOTAL PROTEIN 7.5 gm/dL (6.4-8.2)
[2017-08-23 23:05] LABS: BILIRUBIN NEGATIVE (NEGATIVE); BLOOD 2+ (NEGATIVE); CLARITY CLOUDY (CLEAR); COLOR YELLOW (YELLOW); GLUCOSE NEGATIVE (NEGATIVE); KETONE NEGATIVE (NEGATIVE); LEUKO ESTERASE 3+ (NEGATIVE); NITRITE NEGATIVE (NEGATIVE); PH 5.5 (5.0-9.0); UROBILINOGEN 0.2 E.U./dl (0.2-1.0)
[2017-08-23 23:24] LABS: WBC TNTC wbc/hpf (0-5)
[2017-08-23] MEDS ORDERED: NITROFURANTOIN50 M2 PO (23:40)
== END 2017-08-24 00:06 | disposition other institution (70) ==
LOC: ED 21:06
PROVIDERS: Physician Assistant
DX: N39.0 Urinary tract infection, site not specified (principal); R10.84 Generalized abdominal pain; Z90.710 Acquired absence of both cervix and uterus; Z98.890 Other specified postprocedural states; Z79.899 Other long term (current) drug therapy

== ENCOUNTER 2017-09-17 08:24 | Inpatient (IN) | payer OTHER ==
[~2017-09-17] VITALS: Ht 175.3 cm; Wt 136.6 kg
--- NOTE | ~2017-09-17 | CON ---
[place], [place] REPORT OF CONSULTATION NAME: RHETT PASTRANA UNIT #: [id number] ROOM: 411 DOCTOR: LILLY CERVANTESSERGIO J BIRTHDATE: [birth year] DOS: 09/18/2017 HISTORY OF PRESENT ILLNESS: The patient presents as a 77-year-old white female with swelling and pain in both legs. The patient is experiencing pain, especially in her upper left leg. The patient has a history of having her legs wrapped every day at the longterm. PAST MEDICAL HISTORY: Chronic acquired lymphedema, chronic atrial fibrillation, chronic kidney disease stage 3, diastolic CHF, chronic essential primary hypertension, GERD, hypercoagulable state, hyperlipidemia, moderate aortic stenosis, moderate protein-calorie malnutrition, morbid obesity due to excess calories, normocytic anemia, renal cyst, splenomegaly, supplemental oxygen dependent at night, unable to ambulate, venous stasis in both lower extremities. PAST SURGICAL HISTORY: Hysterectomy, cataract surgery. SOCIAL HISTORY: Denies smoking, illicit drug use or alcohol. FAMILY HISTORY: Father, unknown cause of , . Mother, complications of diabetes, . ALLERGIES: No known allergies. PHYSICAL EXAMINATION: EXTREMITIES: Lower extremity examination: Pedal pulses decreased bilateral lower extremity. There is edema bilateral lower leg with chronic venous stasis, hyperpigmentation noted bilateral. There is discomfort both lower legs, especially the left extending into the thigh. Decreased hair growth, decreased skin temperature. ASSESSMENT: Lymphedema, chronic venous insufficiency, venous stasis dermatitis, pain, peripheral vascular disease. PLAN: Evaluation and management. The patient is going back to the longterm later today. I discussed with the patient before she has further wraps to the legs, I recommend arterial and venous Doppler. The patient should have an TARIQ of above 0.6 for compression to be allowable additionally due to the pain and clinical signs. Recommend venous Doppler to rule out any DVT. The patient was agreeable to this. The tests were ordered immediately before the patient is to go back to the longterm. The patient can follow at the longterm or an outpatient basis if needed if further compression therapy is needed. Thank you for kind consultation. [place], [place] REPORT OF CONSULTATION NAME: RHETT PASTRANA UNIT #: [id number] ROOM: 411 DOCTOR: SERGIO CARR DPM BIRTHDATE: [birth year] SERGIO CARR DPM CM:CONSTR:REPORT OF CONSULTATION 1152 09/19/17 0328 interface
[~2017-09-17 08:24] MED LIST changes: +NITROFURANTOIN50 M2 PO
[2017-09-17 08:26] VITALS: BP 130/63
[2017-09-17] MEDS ORDERED: ACETAMINOPHEN325 M2 PO ×2 (08:32→08:33)
[2017-09-17] MEDS ORDERED: BUMETANIDE0.5 MG PO (08:35)
[2017-09-17] MEDS ORDERED: DOCUSATE SOD100 MG PO (08:35)
[2017-09-17] MEDS ORDERED: DULCOLAX10 M1 R (08:36)
[2017-09-17] MEDS ORDERED: ELIQUIS5 M1 PO (08:37)
[2017-09-17] MEDS ORDERED: NATURE'S BLEND F1 MG PO (08:37)
[2017-09-17] MEDS ORDERED: ACIDOPHILUS1 EAC4 PO (08:39)
[2017-09-17] MEDS ORDERED: METOPROLOL SUCC25 M2 PO (08:40)
[2017-09-17] MEDS ORDERED: MIRALAX POWDER17 G1 PO (08:40)
[2017-09-17] MEDS ORDERED: MILK OF MA400 MG/5 M PO (08:40)
[2017-09-17] MEDS ORDERED: FLINTSTONES1 EAC1 PO (08:40)
[2017-09-17] MEDS ORDERED: TYLENOL EXTRA500 M2 PO (08:41)
[2017-09-17] MEDS ORDERED: PRAVACHOL20 MG PO (08:41)
[2017-09-17] MEDS ORDERED: PROAIR HFA8.5 GM INH (08:42)
[2017-09-17 09:09] LABS: BASO % 0.4 % (0.0-1.0); EOS % 0.9 % (1.0-4.0); HEMATOCRIT 36.4 % (37.0-47.0); HEMOGLOBIN 10.7 g/dl (12.0-16.0); LYMPH # 0.7 10*3/uL (1.3-4.4); LYMPH % 15.9 % (27.0-41.0); MEAN CELL VOLUME 90.5 fl (81.0-99.0); MEAN CORPUSCULAR HGB 26.6 pg (27.0-31.0); MEAN CORPUSCULAR HGB CONC 29.4 g/dl (33.0-37.0); MEAN PLATELET VOLUME 9.4 fl (9.6-12.3); MONO # 0.3 10*3/uL (0.1-1.0); MONO % 6.2 % (3.0-9.0); NEUT # 3.4 10*3/uL (2.3-7.9); NEUT % 75.5 % (47.0-73.0); PLATELET COUNT AUTOMATED 154 10*3/uL (130-400); RED BLOOD COUNT 4.02 10*6/uL (4.10-5.10); RED CELL DISTRI WIDTH 13.9 % (0-14.5); WHITE BLOOD COUNT 4.5 10*3/uL (4.8-10.8)
[2017-09-17 09:21] LABS: ACT PARTIAL THROMBO TIME 27.2 SECONDS (20.8-31.5)
[2017-09-17 09:25] LABS: ALBUMIN 3.5 gm/dl (3.1-4.5); ALKALINE PHOSPHATASE 191 U/L (45-117); BUN 68 mg/dl (7-24); CHLORIDE 100 mmol/L (98-107); CREATININE 0.93 mg/dL (0.55-1.02); POTASSIUM 4.9 mmol/L (3.5-5.1); SGOT/AST 28 IU/L (3-35); SGPT/ALT 39 U/L (12-78); SODIUM 140 mmol/L (136-145); TOTAL PROTEIN 7.6 gm/dL (6.4-8.2)
[2017-09-17 09:32] LABS: TROPONIN I < 0.015 ng/ml (<0.045)
[2017-09-17 09:40] VITALS: BP 109/79
[2017-09-17 12:00] VITALS: BP 133/62
[2017-09-17 12:44] LABS: BILIRUBIN NEGATIVE (NEGATIVE); BLOOD NEGATIVE (NEGATIVE); CLARITY CLEAR (CLEAR); COLOR YELLOW (YELLOW); GLUCOSE NEGATIVE (NEGATIVE); KETONE NEGATIVE (NEGATIVE); LEUKO ESTERASE 1+ (NEGATIVE); NITRITE NEGATIVE (NEGATIVE); PH 5.5 (5.0-9.0); SPECIFIC GRAVITY <= 1.005 (1.005-1.030); UROBILINOGEN 0.2 E.U./dl (0.2-1.0)
[2017-09-17 12:58] LABS: BACTERIA 3+; EPITHELIAL CELLS 0-2; WBC 16-20 wbc/hpf (0-5)
[2017-09-17 16:00] VITALS: BP 110/51
[2017-09-17 20:00] VITALS: BP 99/58
[2017-09-17 22:40] VITALS: BP 123/56
[2017-09-18] VITALS: BP 104/60
[2017-09-18 08:00] VITALS: BP 104/54
[2017-09-18 08:02] LABS: BASO % 0.4 % (0.0-1.0); EOS # 0.1 10*3/uL (0.0-0.4); EOS % 1.4 % (1.0-4.0); HEMATOCRIT 32.5 % (37.0-47.0); HEMOGLOBIN 9.5 g/dl (12.0-16.0); LYMPH # 0.7 10*3/uL (1.3-4.4); MEAN CELL VOLUME 90.3 fl (81.0-99.0); MEAN CORPUSCULAR HGB 26.4 pg (27.0-31.0); MEAN CORPUSCULAR HGB CONC 29.2 g/dl (33.0-37.0); MEAN PLATELET VOLUME 9.4 fl (9.6-12.3); MONO # 0.4 10*3/uL (0.1-1.0); MONO % 7.7 % (3.0-9.0); NEUT # 3.9 10*3/uL (2.3-7.9); NEUT % 75.7 % (47.0-73.0); PLATELET COUNT AUTOMATED 140 10*3/uL (130-400); WHITE BLOOD COUNT 5.1 10*3/uL (4.8-10.8)
[2017-09-18 08:28] LABS: CHLORIDE 102 mmol/L (98-107); POTASSIUM 4.7 mmol/L (3.5-5.1); SODIUM 139 mmol/L (136-145)
[2017-09-18 08:34] LABS: ALBUMIN 3.1 gm/dl (3.1-4.5); ALKALINE PHOSPHATASE 163 U/L (45-117); CHOLESTEROL 117 mg/dL (<200); HDL CHOLESTEROL 41 mg/dl (40-60); LDL CHOLESTEROL 58 mg/dL (9-159); PHOSPHOROUS 3.2 mg/dL (2.5-4.9); SGOT/AST 24 IU/L (3-35); SGPT/ALT 32 U/L (12-78); TOTAL PROTEIN 6.7 gm/dL (6.4-8.2); TRIGLYCERIDES 91 mg/dl (<150); VLDL CHOLESTEROL 18 mg/dL (6-40)
[2017-09-18 08:37] LABS: BUN 54 mg/dl (7-24)
[2017-09-18] MEDS ORDERED: METOPROLOL SUCC25 M2 PO (11:40)
[2017-09-18 12:00] VITALS: BP 111/53
[2017-09-18 14:19] LABS: VITAMIN D, 25-HYDROXY 36.2 ng/mL (30-100)
== END 2017-09-18 15:03 | disposition other institution (70) | DRG 309 ==
LOC: ED 08:24 → EDHOLD 08:48 → 4E 08:48
PROVIDERS: Emergency Medicine; Internal Medicine Hospice and Palliative Medicine
DX: I48.2 Chronic atrial fibrillation (principal); N39.0 Urinary tract infection, site not specified; E87.3 Alkalosis; E44.0 Moderate protein-calorie malnutrition; D68.59 Other primary thrombophilia; I50.32 Chronic diastolic (congestive) heart failure; I13.0 Hypertensive heart and chronic kidney disease with heart failure and stage 1 through stage 4 chronic kidney disease, or unspecified chronic kidney disease; N18.3 Chronic kidney disease, stage 3 (moderate); E66.01 Morbid (severe) obesity due to excess calories; E83.41 Hypermagnesemia; Z68.41 Body mass index [BMI] 40.0-44.9, adult; Z66 Do not resuscitate; Z51.5 Encounter for palliative care; E78.2 Mixed hyperlipidemia; K21.9 Gastro-esophageal reflux disease without esophagitis; K30 Functional dyspepsia; D72.810 Lymphocytopenia; I35.0 Nonrheumatic aortic (valve) stenosis; R60.0 Localized edema; I87.2 Venous insufficiency (chronic) (peripheral); D64.9 Anemia, unspecified; I89.0 Lymphedema, not elsewhere classified; Z79.899 Other long term (current) drug therapy; Z90.710 Acquired absence of both cervix and uterus; Z98.42 Cataract extraction status, left eye; Z83.3 Family history of diabetes mellitus; Z79.01 Long term (current) use of anticoagulants

== ENCOUNTER 2017-11-09 11:14 | Inpatient (IN) | payer OTHER ==
[2017-11-09] VITALS (7 sets, daily range): BP systolic 113–139; BP diastolic 46–78
[~2017-11-09] VITALS: Ht 177.8 cm; Wt 138.3 kg
--- NOTE | ~2017-11-09 | EKG ---
[place], [place] ELECTROCARDIOGRAM REPORT NAME: RHETT PASTRANA UNIT #: [id number] ROOM: 520 DOCTOR: LILLI DRAFT REPORT BIRTHDATE: [birth year] [facility] Test Date: 2017-11-09 Test Time: 12:23:05 Pat Name: RHETT PASTRANA Department: Room: 520 Gender: F Rent And Housing Investigator: : 1940 Requested By: ANNEMARIE ALVA Order Number: [id number] Reading MD: Noé Ramirez MD Measurements Intervals [place] Rate: 104 P: [place]: QRS: 64 QRSD: 80 T: 48 QT: 327 QTc: 430 Interpretive Statements Atrial fibrillation Low voltage, precordial leads RSR' in V1 or V2, probably normal variant Electronically Signed On 11-09-2017 21:38:30 PDT by Noé Ramirez MD CM:EKGRPT:ELECTROCARDIOGRAM REPORT 1223 ANNEMARIE ALVA MD EPIPHCRYSTAL DRAFT REPORT ANNEMARIE ALVA MD
[~2017-11-09 11:14] MED LIST changes: +ACIDOPHILUS1 EAC4 PO; +BUMETANIDE0.5 MG PO; +FLINTSTONES1 EAC1 PO; +METOPROLOL SUCC25 M2 PO; +MIRALAX POWDER17 G1 PO; +PROAIR HFA8.5 GM INH; +TYLENOL EXTRA500 M2 PO
[2017-11-09 11:55] LABS: BASO % 0.4 % (0.0-1.0); EOS # 0.1 10*3/uL (0.0-0.4); EOS % 1.5 % (1.0-4.0); HEMATOCRIT 35.1 % (37.0-47.0); HEMOGLOBIN 9.8 g/dl (12.0-16.0); LYMPH # 0.4 10*3/uL (1.3-4.4); LYMPH % 9.2 % (27.0-41.0); MEAN CELL VOLUME 90.7 fl (81.0-99.0); MEAN CORPUSCULAR HGB 25.3 pg (27.0-31.0); MEAN CORPUSCULAR HGB CONC 27.9 g/dl (33.0-37.0); MEAN PLATELET VOLUME 9.6 fl (9.6-12.3); MONO # 0.3 10*3/uL (0.1-1.0); NEUT # 3.7 10*3/uL (2.3-7.9); NEUT % 81.7 % (47.0-73.0); PLATELET COUNT AUTOMATED 133 10*3/uL (130-400); RED BLOOD COUNT 3.87 10*6/uL (4.10-5.10); RED CELL DISTRI WIDTH 13.3 % (0-14.5); WHITE BLOOD COUNT 4.6 10*3/uL (4.8-10.8)
[2017-11-09 12:06] LABS: ACT PARTIAL THROMBO TIME 27.8 SECONDS (20.8-31.5)
[2017-11-09 12:15] LABS: ALBUMIN 3.6 gm/dl (3.1-4.5); ALKALINE PHOSPHATASE 147 U/L (45-117); BUN 45 mg/dl (7-24); CHLORIDE 95 mmol/L (98-107); CREATININE 1.15 mg/dL (0.55-1.02); POTASSIUM 5.6 mmol/L (3.5-5.1); SGOT/AST 20 IU/L (3-35); SGPT/ALT 30 U/L (12-78); SODIUM 137 mmol/L (136-145); TOTAL PROTEIN 7.1 gm/dL (6.4-8.2)
[2017-11-09 12:17] LABS: TROPONIN I < 0.015 ng/ml (<0.045)
[2017-11-09 13:02] LABS: BILIRUBIN NEGATIVE (NEGATIVE); BLOOD TRACE-INTACT (NEGATIVE); CLARITY SL CLOUDY (CLEAR); COLOR YELLOW (YELLOW); GLUCOSE NEGATIVE (NEGATIVE); KETONE NEGATIVE (NEGATIVE); LEUKO ESTERASE 2+ (NEGATIVE); NITRITE NEGATIVE (NEGATIVE); UROBILINOGEN 0.2 E.U./dl (0.2-1.0)
[2017-11-09 13:09] LABS: WBC TNTC wbc/hpf (0-5)
[2017-11-09] MEDS ORDERED: ALDACTONE25 M1 PO (14:54)
[2017-11-09 16:52] LABS: BUN 44 mg/dl (7-24); CHLORIDE 95 mmol/L (98-107); CREATININE 1.07 mg/dL (0.55-1.02); POTASSIUM 5.6 mmol/L (3.5-5.1); SODIUM 138 mmol/L (136-145)
[2017-11-10] VITALS: BP 110/53
[2017-11-10 06:24] LABS: BASO % 0.5 % (0.0-1.0); EOS # 0.1 10*3/uL (0.0-0.4); EOS % 1.4 % (1.0-4.0); HEMATOCRIT 37.3 % (37.0-47.0); LYMPH # 0.6 10*3/uL (1.3-4.4); LYMPH % 13.7 % (27.0-41.0); MEAN CORPUSCULAR HGB 24.9 pg (27.0-31.0); MEAN CORPUSCULAR HGB CONC 26.8 g/dl (33.0-37.0); MEAN PLATELET VOLUME 9.8 fl (9.6-12.3); MONO # 0.4 10*3/uL (0.1-1.0); MONO % 9.1 % (3.0-9.0); NEUT # 3.1 10*3/uL (2.3-7.9); NEUT % 75.1 % (47.0-73.0); PLATELET COUNT AUTOMATED 124 10*3/uL (130-400); RED BLOOD COUNT 4.01 10*6/uL (4.10-5.10); RED CELL DISTRI WIDTH 13.2 % (0-14.5); WHITE BLOOD COUNT 4.2 10*3/uL (4.8-10.8)
[2017-11-10 06:49] LABS: ALBUMIN 3.6 gm/dl (3.1-4.5); CREATININE 1.11 mg/dL (0.55-1.02); FREE T4 0.99 ng/dl (0.76-1.46); PHOSPHOROUS 3.8 mg/dL (2.5-4.9); POTASSIUM 5.5 mmol/L (3.5-5.1); TOTAL PROTEIN 7.1 gm/dL (6.4-8.2)
[2017-11-10 06:54] LABS: THYROID STIM HORMONE (HS) 2.26 uIU/ml (0.358-4.75)
[2017-11-10 08:00] VITALS: BP 119/85
[2017-11-10 08:18] LABS: VITAMIN D, 25-HYDROXY 28.8 ng/mL (30-100)
[2017-11-10 13:09] VITALS: BP 118/68
[2017-11-10 16:00] VITALS: BP 100/58
[2017-11-10 20:00] VITALS: BP 114/52; BP 114/71
[2017-11-11] VITALS: BP 117/80
[2017-11-11 07:38] LABS: CHLORIDE 95 mmol/L (98-107); SODIUM 137 mmol/L (136-145)
[2017-11-11 07:53] LABS: BUN 50 mg/dl (7-24)
[2017-11-11 08:00] VITALS: BP 101/49
[2017-11-11 12:00] VITALS: BP 127/60
[2017-11-11 16:00] VITALS: BP 109/62
[2017-11-11 20:00] VITALS: BP 115/61
[2017-11-12] VITALS: BP 113/58
[2017-11-12 06:26] LABS: BUN 48 mg/dl (7-24); CHLORIDE 93 mmol/L (98-107); CREATININE 0.96 mg/dL (0.55-1.02); POTASSIUM 4.5 mmol/L (3.5-5.1); SODIUM 139 mmol/L (136-145)
[2017-11-12 08:00] VITALS: BP 112/87
[2017-11-12 12:00] VITALS: BP 108/62
[2017-11-12 16:00] VITALS: BP 119/71
[2017-11-12 20:00] VITALS: BP 110/60
[2017-11-13] VITALS: BP 136/76
[2017-11-13 08:00] VITALS: BP 128/76
[2017-11-13] MEDS ORDERED: CEFUROXIME AXE250 MG PO (10:49)
[2017-11-13] MEDS ORDERED: TOPROL XL50 M1 PO (10:49)
[2017-11-25] MEDS ORDERED: MACROBID100 M1 PO (03:00)
[2017-11-30] MEDS ORDERED: ACETAZOLAMIDE250 MG PO (08:47)
[2017-11-30] MEDS ORDERED: BUMETANIDE1 MG PO (08:47)
[2017-11-30] MEDS ORDERED: LIPITOR10 MG PO (08:47)
[2017-11-30] MEDS ORDERED: METOPROLOL SUCC25 M2 PO (08:47)
== END 2017-11-13 13:06 | disposition other institution (70) | DRG 871 ==
LOC: ED 11:14 → EDHOLD 13:09 → 5E 13:09
PROVIDERS: Emergency Medicine; Internal Medicine; Student in an Organized Health Care Education/Training Program
DX: A41.9 Sepsis, unspecified organism (principal); I50.33 Acute on chronic diastolic (congestive) heart failure; N17.0 Acute kidney failure with tubular necrosis; N39.0 Urinary tract infection, site not specified; I13.0 Hypertensive heart and chronic kidney disease with heart failure and stage 1 through stage 4 chronic kidney disease, or unspecified chronic kidney disease; Z68.42 Body mass index [BMI] 45.0-49.9, adult; E87.5 Hyperkalemia; I48.2 Chronic atrial fibrillation; E66.01 Morbid (severe) obesity due to excess calories; N18.3 Chronic kidney disease, stage 3 (moderate); Z66 Do not resuscitate; Z51.5 Encounter for palliative care; R26.2 Difficulty in walking, not elsewhere classified; Z99.81 Dependence on supplemental oxygen; I35.0 Nonrheumatic aortic (valve) stenosis; E78.2 Mixed hyperlipidemia; B96.1 Klebsiella pneumoniae [K. pneumoniae] as the cause of diseases classified elsewhere; D64.9 Anemia, unspecified; K21.9 Gastro-esophageal reflux disease without esophagitis; I89.0 Lymphedema, not elsewhere classified; Z79.01 Long term (current) use of anticoagulants; Z79.899 Other long term (current) drug therapy; Z87.440 Personal history of urinary (tract) infections; Z90.710 Acquired absence of both cervix and uterus; Z98.42 Cataract extraction status, left eye; Z83.3 Family history of diabetes mellitus; Z80.9 Family history of malignant neoplasm, unspecified; Z82.49 Family history of ischemic heart disease and other diseases of the circulatory system

== ENCOUNTER 2017-12-21 13:08 | Inpatient (IN) | payer OTHER ==
[2017-12-21] VITALS (7 sets, daily range): BP systolic 108–142; BP diastolic 47–82
[~2017-12-21] VITALS: Ht 177.8 cm; Wt 139.8 kg
--- NOTE | ~2017-12-21 | PROC NOTE ---
[place], [place] PROCEDURE NOTE NAME: RHETT PASTRANA [facility] #: [id number] UNIT #: [id number] ROOM: 428 DOCTOR: AILYN DORSEY BIRTHDATE: [birth year] DOS: 12/27/2017 MODIFIED BARIUM SWALLOW LOCATION: [facility], room 428, bed 1. ORDERING PHYSICIAN: Dr. Finn. RADIOLOGIST: Dr. Hebert. BACKGROUND INFORMATION: The patient is a 77-year-old female was seen for a modified barium swallow. This test was ordered due to reports of difficulty swallowing pills. The patient also reported difficulty swallowing food and liquid, but was unable to specify. For the assessment, she was weak and had difficulty maintaining adequate positioning due to her size and condition. She presented in a consistent open mouth position with noticeably loose fitting bottom denture. She was confused, but able to follow commands for completion of the study. Oral peripheral examination was completed. The patient presents with upper and lower dentures, as previously mentioned bottoms were loose; however, her top denture appeared to be adequately fitting. Lingual and labial skills were adequate in terms of strength, range of motion, and coordination. Buccal skills were weak. The patient was unable to volitionally swallow. She was able to adequately cough volitionally. METHODS AND MATERIALS USED FOR THE EXAM: The patient was positioned in the lateral plane and the exam was viewed under fluoroscopy. The patient was presented with a variety of consistencies to assess swallowing skills including applesauce mixed with barium presented in half teaspoon amounts, barium-coated banana taken in bite size piece and thin liquid barium taken by cup. ORAL PHASE: The patient achieved adequate labial seal around cup and spoon with no anterior loss. Bolus formation was adequate. Transit of solid consistency was mildly impaired as was mastication due to her weakness and loose fitting denture. Tongue to palate contact was within normal limits. Tongue to posterior pharyngeal wall contact was mildly impaired with solid. Velar functioning was within normal limits with no nasal regurgitation. PHARYNGEAL PHASE: The pharyngeal swallow occurred within a timely manner. During the swallow, laryngeal elevation and epiglottic function were within normal limits. No penetration or aspiration occurred with any consistency. Pooling in the vallecula did occur with puree and solids due to her weak tongue retraction, this did clear with liquid wash. ESOPHAGEAL PHASE: This phase of the swallow was not formally assessed during this exam. IMPRESSIONS AND RECOMMENDATIONS: Based upon assessment results, this 77-year-old patient presents with a mild oropharyngeal dysphagia characterized by impaired mastication and transit of solids and pooling in the pharynx due to reduced tongue to posterior pharyngeal wall contact. There was no penetration [place], [place] PROCEDURE NOTE NAME: RHETT PASTRANA UNIT #: [id number] ROOM: [facility] DOCTOR: AILYN DORSEY BIRTHDATE: [birth year] or aspiration occurring. Recommend the patient receive a mechanical soft diet with ground meats and thin liquids. Recommend safe swallow strategies such as consumption of small bites and sips and alternating liquids and solids. Followup therapy is recommended to improve safety of swallow through pharyngeal strengthening exercises, education, and adherence to safe swallow precautions. Results and recommendations were shared with the patient's sister and nurse and they verbalized understanding. Thank you very much for this referral. Should you have any questions regarding this patient, please contact the speech pathologist at [phone]. AILYN DORSEY CM:PROCNOTE:PROCEDURE NOTE [phone] AILYN DORSEY
--- NOTE | ~2017-12-21 | EKG ---
[place], [place] ELECTROCARDIOGRAM REPORT NAME: RHETT PASTRANA UNIT #: [id number] ROOM: 428 DOCTOR: LILLI DRAFT REPORT BIRTHDATE: [birth year] [facility] Test Date: 2017-12-21 Test Time: 17:21:58 Pat Name: RHETT PASTRANA Department: Room: [facility] 1 Gender: F User Experience Designer: MARYANN : 1940 Requested By: DEJUAN GOMEZ Order Number: [id number] Reading MD: Noé Ramirez MD Measurements Intervals [place] Rate: 103 P: [place]: QRS: 65 QRSD: 93 T: 48 QT: 346 QTc: 453 Interpretive Statements Atrial fibrillation RSR' in V1 or V2, right VCD or RVH Compared to ECG 12/09/2017 16:34:58 No significant changes Electronically Signed On 12-21-2017 19:57:23 PDT by Noé Ramirez MD CM:EKGRPT:ELECTROCARDIOGRAM REPORT 20 56 DEJUAN BARNHART DRAFT REPORT DEJUAN GOMEZ DO
--- NOTE | ~2017-12-21 | PR ---
[place], [place] PROGRESS NOTE NAME: RHETT PASTRANA [facility] #: [id number] UNIT #: [id number] ROOM: 428 DOCTOR: VINCENT MANNING MD,MOHIT BIRTHDATE: [birth year] DOS: 12/25/2017 PULMONARY PROGRESS NOTE SUBJECTIVE: The patient has been noted comfortable at this time. She has a Tran catheter inserted for more accurate intake and output recording. The patient's output was still noted limited since the Tran catheter placed later in the afternoon. She has been comfortably resting on the bed. Denies symptoms of acute shortness of breath. Mild shortness of breath was noted. PHYSICAL EXAMINATION: VITAL SIGNS: 97% saturation on 3 liters cannula. HEENT: Chronic obesity. NECK: Supple. CARDIOVASCULAR: S1, S2 audible. LUNGS: Noted without any wheezing or crackles at the present time. ABDOMEN: Soft, nontender. Bowel sounds present. EXTREMITIES: Still noted severe edema of the lower extremities. IMPRESSION: Persistent congestive heart failure with significant fluid overload was noted with morbid obesity. PLAN OF MANAGEMENT: Continue diuretic, bronchodilators. Accurate intake and output recording for the patient will be started from today. Other previous treatment, therapy, plan of management continue as previously. Usual care. MOHIT KUAR MD CM:PNTRANS [id number] MOHIT MANNING MD 12/26/17 0044 interface
--- NOTE | ~2017-12-21 | PR ---
[place], [place] PROGRESS NOTE NAME: RHETT PASTRANA [facility] [id number] UNIT #: [id number] ROOM: 428 DOCTOR: VINCENT MANNING MD,MOHIT BIRTHDATE: [birth year] DOS: 12/24/2017 SUBJECTIVE: She has been noted comfortable at this time, lying in the bed. Diuretic therapy has been changed by Dr. Fernandez. She was started on Bumex, currently twice a day still noted significant edema of the lower extremities. Denies any acute shortness of breath at rest. There were no symptoms of coughing or chest pain. OBJECTIVE: VITAL SIGNS: Normal temperature, respiratory rate 18, heart rate 102, blood pressure 120/53. Pulse oxygen saturation on 2.5 liters nasal cannula 98% saturation. HEENT: Examination shows head was atraumatic. Eyes, nonicterus. NECK: Supple and obese. CARDIOVASCULAR: S1, S2 audible. LUNGS: Noted without any wheezing or crackles at the present time. Breaths are noted generally diminished bilaterally. EXTREMITIES: Noted severe edema of the lower extremities. IMPRESSION: The patient with severe congestive heart failure with peripheral edema, anasarca picture, and morbid obesity. PLAN OF MANAGEMENT: Continuation of the current therapy, plan of management. Consider insertion of the Tran catheter for more accurate intake and output drainage for this patient, since the patient has not been noted with any documentation of the output, patient currently on Bumex. Continue to monitor kidney functions closely and other medical management as ordered. Monitoring of the metabolic alkalosis and CO2 were noted. MOHIT KAUR MD CM:PNTRANS [id number] MOHIT MANNING MD 01/24/18 0735 interface
--- NOTE | ~2017-12-21 | PR ---
[place], [place] PROGRESS NOTE NAME: RHETT PASTRANA UNIT #: [id number] ROOM: 428 DOCTOR: MOHIT DANIELSON MD BIRTHDATE: [birth year] DOS: 12/28/2017 SUBJECTIVE: The patient has been noted comfortable at this time. Continue to get oxygen supplementation via nasal cannula, has not been noted any symptoms of chest pain. The patient does not have symptoms of hemoptysis. The patient was continued on the diuretic therapy, intravenous Bumex and others. She was given one dose of Zaroxolyn couple of days ago and which has not been repeated. The patient has been monitored by the Cardiology Services as well. The patient has been noted confusion. The patient unable to give any history. OBJECTIVE: VITAL SIGNS: Normal temperature, respiratory rate 16, heart rate of 120-78. The blood pressure 114/76 this morning. Pulse ox saturation on 3 liters nasal cannula 93% saturation recorded. HEENT: Examination shows head was atraumatic. Eyes nonicterus. NECK: Supple. CARDIOVASCULAR: S1, S2 is audible. LUNGS: Decreased breath sounds noted in the lungs bilaterally, more on the right than the left side. No crackles. ABDOMEN: Soft. EXTREMITIES: Show severe edema. LABORATORY DATA: CBC today: WBC count normal, hemoglobin 9.7, platelet count was 113,000. BMP this morning; BUN 68, creatinine 1.57. The CO2 was noted today as 40. IMPRESSION: 1. Resolving metabolic alkalosis with prerenal azotemia with acute kidney injury, elevation of the creatinine. 2. Diuretic with congestive heart failure, prerenal condition. 3. Pleural fluid secondary to congestive heart failure. PLAN OF MANAGEMENT: Respiratory failure. The patient seemed to be improving with reduced oxygen requirement. Continue diuretic, bronchodilators, metabolic alkalosis and others. Obtain a chest x-ray today to assess the progression of the changes in the lungs by radiology data. Portable chest x-ray will be ordered. [place], [place] PROGRESS NOTE NAME: RHETT PASTRANA UNIT #: [id number] ROOM: 428 DOCTOR: MOHIT DANIELSON MD BIRTHDATE: [birth year] MOHIT KAUR MD CM:PNSTACIA [id number] MOHIT MANNING MD 12/28/17 1317 interface
--- NOTE | ~2017-12-21 | PR ---
[place], [place] PROGRESS NOTE NAME: RHETT PASTRANA [facility] #: [id number] UNIT #: [id number] ROOM: 428 DOCTOR: VINCENT MANNING MD,MOHIT BIRTHDATE: [birth year] DOS: 12/29/2017 SUBJECTIVE: The patient became unconscious gradually on 100% nonrebreather mask because of hypoxia. Not respond to vocal commands. This morning, the patient was assessed. OBJECTIVE: VITAL SIGNS: Normal temperature, respiratory rate 18, heart 114, blood pressure 109/66. Pulse oxygen saturation on 100% nonrebreather mask. The patient 90% saturation. HEENT: Examination shows head was atraumatic. Eyes nonicterus. CARDIOVASCULAR: S1, S2 is audible. LUNGS: Bilaterally decreased breath sounds in the lungs. The patient was noted worsening from previously. The extremity remains unchanged. ABDOMEN: Noted obesity. IMPRESSION: The patient with anasarca, congestive heart failure, failed to respond to the conservative therapy with bilateral pleural effusions. PLAN OF MANAGEMENT: No changes from the pulmonary standpoint for the patient at this time. The patient's prognosis is noted grave at this time. Continue comfort measures only. MOHIT KAUR MD CM:NAVIN [id number] MOHIT MANNING MD 01/24/18 0740 interface
--- NOTE | ~2017-12-21 | PR ---
[place], [place] PROGRESS NOTE NAME: RHETT PASTRANA UNIT #: [id number] ROOM: 428 DOCTOR: MOHIT DANIELSON MD BIRTHDATE: [birth year] DOS: 12/23/2017 SUBJECTIVE: The patient was noted comfortable at this time, resting in the bed without any acute distress. Shortness of breath is essentially remains unchanged. Denies symptoms of coughing, sputum expectoration. Continue to get diuretics. The patient has been using oxygen supplementation with a nasal cannula. Then, intake and output recorded accurately for this patient. She does not have Tran catheter. OBJECTIVE: VITAL SIGNS: Showed normal temperature, respirations 18, heart rate 110 and blood pressure 92/55. Pulse oxygen saturation on 3 liters nasal cannula 97% saturation. HEENT: Examination shows head was atraumatic. Eyes nonicterus. NECK: Supple. CARDIOVASCULAR: S1, S2 is audible. LUNGS: The patient was noted without any wheezing, crackles in the lungs were noted to be passed lower portion of the lungs. ABDOMEN: Soft and obese. EXTREMITIES: The patient noted 2-3+ pitting edema. LABORATORY DATA: CBC: WBC count 3.6, hemoglobin 9.2 and platelet count were normal. BMP this morning, BUN 56, creatinine was normal and CO2 of 43. IMPRESSION: 1. Metabolic alkalosis remains persistent for this patient. The patient started Diamox yesterday. 2. Acute congestive heart failure for patient as well with diastolic dysfunction. There is edema of the lower extremity is still noted. Otherwise, respiratory status remained stable with current oxygen supplementation and plan of treatment. Continuation of the Diamox for this patient b.i.d. Continuation of intravenous Bumex for this patient and other medical management. Titrate oxygen supplementation, maintain pulse oxygen saturation 92% or greater. [place], [place] PROGRESS NOTE NAME: RHETT PASTRANA UNIT #: [id number] ROOM: 428 DOCTOR: MOHIT DANIELSON MD BIRTHDATE: [birth year] MOHIT KAUR MD CM:PNTRANS [phone] MOHIT MANNING MD 12/23/17 1123 interface
--- NOTE | ~2017-12-21 | EKG ---
[place], [place] ELECTROCARDIOGRAM REPORT NAME: RHETT PASTRANA UNIT #: [id number] ROOM: [facility] DOCTOR: LILLI DRAFT REPORT BIRTHDATE: [birth year] [facility] Test Date: 2017-12-26 Test Time: 08:29:45 Pat Name: RHETT PASTRANA Department: Room: [facility] 1 Gender: F Sewing Pattern Layout Technician: Judi Jackson : 1940 Requested By: DEJUAN GOMEZ Order Number: [id number] Reading MD: Monae Bateman MD Measurements Intervals [place] Rate: 114 P: [place]: QRS: 87 QRSD: 90 T: 70 QT: 327 QTc: 451 Interpretive Statements Atrial fibrillation Borderline right axis deviation Low voltage, precordial leads RSR' in V1 or V2, probably normal variant Compared to ECG 12/21/2017 17:21:58 Low QRS voltage now present Right ventricular hypertrophy no longer present Electronically Signed On 12-26-2017 14:01:00 PDT by Monae Bateman MD CM:EKGRPT:ELECTROCARDIOGRAM REPORT 0829 1401 DEJUAN BARNHART DRAFT REPORT DEJUAN GOMEZ DO
--- NOTE | ~2017-12-21 | PR ---
[place], [place] PROGRESS NOTE NAME: RHETT PASTRANA LOCATED [facility]IN [facility] #: [id number] UNIT #: [id number] ROOM: 428 DOCTOR: VINCENT MANNING MDMOHIT BIRTHDATE: [birth year] DOS: 12/26/2017 SUBJECTIVE: The patient was still noted in the hospital and still noted edema of the lower extremity, was getting diuretic therapy with intravenous Bumex. The diuretic therapy was continued, intravenous Bumex twice a day. She was still not noted significant negative balance. She was noted bedbound. There are no symptoms of nausea, vomiting, diarrhea, abdominal pain, hematemesis, melena, or hematochezia. The patient does not ambulate. The review of system is limited, but noted otherwise negative. PHYSICAL EXAMINATION: VITAL SIGNS: Temperature noted normal, respiratory rate of 20, heart rate 99 to 115, blood pressure 117/66-100/47. Pulse oxygen saturation noted on nasal cannula. The patient's oxygen supplementation 4 liters to 4.5 liters 97% saturation. The oxygen requirement has increased in the last 24 hours. HEAD, EYES, EARS, NOSE, AND THROAT: Head was atraumatic. Eye nonicterus. NECK: Supple. CARDIOVASCULAR SYSTEM: S1, S2 is audible. LUNGS: The patient was noted with a significant decreased breaths in the lungs bilaterally. ABDOMEN: Soft, obese. EXTREMITIES: Showed persistent severe edema. VISIBLE SKIN: No lesions or rashes. CENTERAL NERVOUS SYSTEM: Bedbound status. General weakness. MUSCULOSKELETAL: No deformities. LABORATORY AND DIAGNOSTIC DATA: BMP that was done this morning, BUN 50, creatinine 1.06, glucose 112. Carbon dioxide 52. CO2 of 91. CBC was noted with WBC count 5.5, hemoglobin 10.2, hematocrit 39.7, and platelet count 111,000. The chest x-ray that was done today was noted with significant worsening pleural fluid with [id number] pleural fluid noted in the right side with finding of congestive heart failure. IMPRESSION: 1. The patient with congestive heart failure, severe metabolic alkalosis noted resistant to diuresis at this time was provided. 2. Chronic obesity. 3. Comfort code status. 4. Increased oxygen requirement for the acute respiratory failure. PLAN AND MANAGEMENT: Diuretic therapy will be discussed by the primary care team, Cardiology Service to make further adjustment. Because of comfort care the invasive procedure was not planned. The patient was rather getting the Diamox 250 mg b.i.d. The dose will be changed 3 times a day. Continue to monitor electrolytes and the potassium with the use of the Diamox. [place], [place] PROGRESS NOTE NAME: RHETT PASTRANA UNIT #: [id number] ROOM: [facility] DOCTOR: VINCENT MANNING MD,MOHIT BIRTHDATE: [birth year] MOHIT KAUR MD CM:PNTRANS 1040 [id number] MOHIT MANNING MD 01/24/18 0736 interface
--- NOTE | ~2017-12-21 | PR ---
[place], [place] PROGRESS NOTE NAME: RHETT PASTRANA UNIT #: [id number] ROOM: 428 DOCTOR: MOHIT DANIELSON MD BIRTHDATE: [birth year] DOS: 12/27/2017 PULMONARY PROGRESS NOTE SUBJECTIVE: The patient remains essentially the same from yesterday. She was seen by another shot polisher and inspector yesterday as well and was given 1 dose of Zaroxolyn, continued with Bumex. She has not been noted in any respiratory distress , remained on oxygen supplementation via nasal cannula. OBJECTIVE: VITAL SIGNS: Normal temperature, respiratory rate 16, heart rate 99, blood pressure 121/67 recorded this morning. The pulse ox saturation noted on 4-1/2 liters nasal cannula as 99% saturation. HEENT: Chronic obesity. NECK: Supple. CARDIOVASCULAR: S1, S2 is audible. LUNGS: Noted with persistent decreased breath sounds in the right lung with scattered crackles. No wheezing. ABDOMEN: Soft. EXTREMITIES: Still show severe edema. LABORATORY DATA: BMP today: BUN 57, creatinine 1.25, CO2 was noted decreased to 44. IMPRESSION: 1. The patient with right pleural fluid. 2. Congestive heart failure, not responding well to the current diuretic therapy, still remains in positive fluid balance. 3. The patient with comfort care status at this time. PLAN OF MANAGEMENT: No invasive procedure was planned for this patient because of the patient's current comfort code status as discussed previously with the family members. Continue conservative therapy. Overall prognosis of the patient remains guarded. Follow the recommendations of Cardiology for congestive heart failure. [place], [place] PROGRESS NOTE NAME: RHETT PASTRANA UNIT #: [id number] ROOM: 428 DOCTOR: MOHIT DANIELSON MD BIRTHDATE: [birth year] MOHIT KAUR MD CM:PNTRANS [id number] MOHIT MANNING MD 01/24/18 0737 interface
--- NOTE | ~2017-12-21 | CON ---
[place], [place] REPORT OF CONSULTATION NAME: RHETT PASTRANA [facility] #: [id number] UNIT #: [id number] ROOM: 428 DOCTOR: MAGDALENE, PHD DM BIRTHDATE: [birth year] DOS: 12/27/2017 HISTORY OF PRESENT ILLNESS: The patient is a 77-year-old female referred by the hospitalist due to concerns for new onset of hallucinations. At the present time, the patient is on the medical floor at [facility]. According to staff, the patient lives in a fpc. She denied having any children and stated she was . Her record states there is no alcohol, tobacco or illegal drug use. PAST MEDICAL HISTORY: Chronic acquired lymphedema, chronic atrial fibrillation, chronic kidney disease, diastolic congestive heart failure, hypertension, GERD, anemia, moderate aortic stenosis. MEDICATIONS: Toprol-XL, Diamox, folic acid, Lipitor, Bumex, Lactinex, Colace, Remeron, Eliquis, Restoril. PHYSICAL EXAMINATION: GENERAL: The patient was lying in bed in no apparent distress. She was quite somnolent. She was not oriented and had difficulty participating in the evaluation. DIAGNOSIS: Delirium, not otherwise specified. RECOMMENDATIONS: We will continue to follow to assess for the appropriateness of BHU placement. Thank you very much for this consult. Katy Howe, PhD CM:CONSTR:REPORT OF CONSULTATION 1809 12/28/17 0322 interface
--- NOTE | ~2017-12-21 | CON ---
[place], [place] REPORT OF CONSULTATION NAME: RHETT PASTRANA [facility] #: [id number] UNIT #: [id number] ROOM: 428 DOCTOR: MOHIT DANIELSON MD BIRTHDATE: [birth year] DOS: 12/22/2017 PULMONARY CONSULTATION CONSULTATION REQUESTED BY: Hospitalist services. REASON FOR CONSULTATION: For assessment of current congestive heart failure, respiratory failure, and abnormality on chest x-ray. HISTORY OF PRESENT ILLNESS: The history is obtained mostly from the patient's sister present in the room. The patient noted moderate rather hearing loss. She has been brought to the hospital. The patient was stating at the nursing facility and sister called to check and heart rate that she is dying. She does report symptoms of shortness of breath as well. The patient was sent to the Emergency Room for further assessment. The patient presented to the Emergency Room, noted with progressive increased edema of the lower extremities as well. She does have some symptoms of bloating of the abdomen, also reported mild cough without any clear sputum expectoration. The patient had receiving Bumex. The patient is in the nursing facility because of increasing edema of the lower extremities. The patient reported symptoms of visual hallucinations as well. She had a chest x-ray done in the Emergency Room was suggestive of a pleural fluid with the finding of congestive heart failure, currently admitted to the hospital for further care. The patient's code status noted DNR comfort care for the patient. REVIEW OF SYSTEMS: CONSTITUTIONAL: She was complaining of fatigue and tiredness and symptoms of fever or chills. EYES: Denies any burning, redness, or tenderness. EARS, NOSE, THROAT SYMPTOMS: No sore throat, hoarseness, otalgia, postnasal drainage or epistaxis. CARDIOVASCULAR: Denies anginal pain, edema, or pain in lower extremity. GASTROINTESTINAL: Bloating of symptoms in the abdomen, but reported with symptoms of nausea, vomiting, diarrhea, abdominal pain, hematemesis, melena, or hematochezia. SKIN: Denies any lesions or rashes. MUSCULOSKELETAL: Noted without acute deformities. The remaining systems were reviewed limited. There were noted all negative. PAST MEDICAL HISTORY: 1. Noted with history of congestive heart failure, diastolic dysfunction. 2. Essential hypertension. 3. Gastroesophageal reflux disease. 4. Hypercoagulability disorder reported details unknown. 5. Mixed hyperlipidemia. 6. Morbid obesity. 7. Bedbound status. 8. Past history of urinary tract infection as well. 9. Acute chronic kidney disease reported as stage 3. [place], [place] REPORT OF CONSULTATION NAME: RHETT PASTRANA UNIT #: [id number] ROOM: 428 DOCTOR: MOHIT DANIELSON MD BIRTHDATE: [birth year] 10. History of chronic atrial fibrillation. 11. Chronic hypoxic respiratory failure, use of oxygen continuous per sister. SOCIAL HISTORY: The patient is currently . Does have 8 children, is a resident of a nursing facility for 3 years or more as per sister. There is no tobacco, alcohol, or illicit drug use reported. FAMILY HISTORY: The patient's father with complication of cerebral aneurysm. Mother of complication related to diabetes mellitus. MEDICATIONS: The medications from the nursing facility noted use of Diamox, Eliquis, Lipitor, Bumex, folic acid, lactobacillus, multivitamin, and other p.r.n. medications. DRUG ALLERGIES: Noted as no known allergies. PHYSICAL EXAMINATION: GENERAL: A 77 year-old elderly female, currently lying in the bed without acute distress. Height of 5 feet 10 inches, weight of 204 pounds, BMI 43. VITAL SIGNS: For the patient which have been recorded showed normal temperature, respiratory rate of 20-18. Heart rate of 110-93 with atrial fibrillation, rapid ventricular response. The blood pressure 121/47-142/62. The pulse oxygen saturation on 3 liters nasal cannula was noted as 95% saturation. HEENT: Partial hearing loss. Head was atraumatic. Decreased posterior pharyngeal space, high tongue base, crowding of soft tissue structures. Oral mucosa is moist. Eyes nonicterus. NECK: Supple. CARDIOVASCULAR: S1, S2 is audible. LUNGS: The patient was noted with severely reduced breath sounds on the right lung. The patient had scattered crackles of the remaining lung. There was no wheezing. ABDOMEN: Noted very severe obesity. Bowel sounds present. There was no tenderness. EXTREMITIES: The patient noted without any deformities. A 2-3+ pitting edema noted in bilateral lower extremities and partial edema of the upper extremities bilaterally. SKIN: No lesions or rashes. CENTRAL NERVOUS SYSTEM: Cranial nerves 2-12 were noted, grossly intact except general weakness and fatigue. Lactic acid noted as normal yesterday on admission at 0.9. CBC on 12/21/2017, hemoglobin 9.9, hematocrit was noted normal 37%. WBC count normal, platelet count was normal. CBC this morning, hemoglobin 9.9, hematocrit still reported at 37.4, which is a disparity between hemoglobin and hematocrit. The WBC count normal at 44.2. Platelet count was today noted at 106,000. CMP of the patient that was done yesterday noted BUN 64, creatinine was normal, glucose 114. CO2 of 42, chloride of 93. Remaining LFTs were normal. Troponin of 3 sets yesterday were noted all normal. Today, BUN 64 and creatinine normal. Carbon dioxide still noted as 42, chloride of 94. Chest x-ray 1 view, that was done yesterday was reviewed, shows pulmonary venous congestion noted with a right-sided pleural fluid with a bit area of [place], [place] REPORT OF CONSULTATION NAME: RHETT PASTRANA UNIT #: [id number] ROOM: [facility] DOCTOR: ISAIAS DANIELSON MDM BIRTHDATE: [birth year] atelectasis in the right lung as well. Possibility of loculated pleural fluid was noted. There were no large pleural fluids were noted on the left side. IMPRESSION: 1. The patient will be admitted to the hospital with symptoms of shortness of breath with current finding suggestive of acute congestive heart failure, diastolic dysfunction and area of atelectasis of the right lung. The etiology is unclear. Suspected mucus impaction of the secretions. 2. The patient with chronic morbid obesity as well and acute chronic hypercarbia patient related to diuretics or CO2 for this patient elevation chronic hypercarbia would be suspected. 3. Strong suggestion of obstructive sleep apnea disorder as well. 4. History of chronic hypoxic respiratory failure. 5. Atrial fibrillation with rapid ventricular response. PLAN OF MANAGEMENT: Controlling the heart rate to the maximal level with use of diuretics. Monitoring of the respiratory status closely because of comfort care status. Some intervention would be noted very limited. Repeat chest x-ray in the morning, PA lateral view for more accurate assessment. The patient would be resumed on the Diamox to help improve the metabolic alkalosis. Monitoring the patient especially potassium level. Monitor BUN, creatinine and other labs and care. Usual care, other supportive therapy, and plan of management. The assessment and management has been discussed with the patient's sister in detail. Thanks for allowing me to participate in the care of this patient. MOHIT KAUR MD CM:CONSTR:REPORT OF CONSULTATION 1533 01/24/18 0734 interface
[~2017-12-21 13:08] MED LIST changes: +ACETAZOLAMIDE250 MG PO; +ALDACTONE25 M1 PO; +CEFUROXIME AXE250 MG PO; +LIPITOR10 MG PO; +MACROBID100 M1 PO; +STOOL SOFTENER100 M3 PO; +TOPROL XL50 M1 PO; +TYLENOL325 M2 PO
[2017-12-21 13:42] LABS: BASO % 0.2 % (0.0-1.0); EOS % 0.4 % (1.0-4.0); HEMATOCRIT 37.4 % (37.0-47.0); HEMOGLOBIN 9.9 g/dl (12.0-16.0); LYMPH # 0.4 10*3/uL (1.3-4.4); LYMPH % 7.7 % (27.0-41.0); MEAN CELL VOLUME 93.5 fl (81.0-99.0); MEAN CORPUSCULAR HGB 24.8 pg (27.0-31.0); MEAN CORPUSCULAR HGB CONC 26.5 g/dl (33.0-37.0); MEAN PLATELET VOLUME 10.4 fl (9.6-12.3); MONO # 0.3 10*3/uL (0.1-1.0); MONO % 6.3 % (3.0-9.0); NEUT # 4.1 10*3/uL (2.3-7.9); NEUT % 85.2 % (47.0-73.0); PLATELET COUNT AUTOMATED 99 10*3/uL (130-400); RED CELL DISTRI WIDTH 14.2 % (0-14.5); WHITE BLOOD COUNT 4.8 10*3/uL (4.8-10.8)
[2017-12-21 13:57] LABS: ALBUMIN 3.4 gm/dl (3.1-4.5); ALKALINE PHOSPHATASE 107 U/L (45-117); BUN 64 mg/dl (7-24); CHLORIDE 93 mmol/L (98-107); CREATININE 1.02 mg/dL (0.55-1.02); POTASSIUM 4.5 mmol/L (3.5-5.1); SGOT/AST 24 IU/L (3-35); SGPT/ALT 27 U/L (12-78); SODIUM 139 mmol/L (136-145)
[2017-12-21] MEDS ORDERED: MIRALAX POWDER255 G1 PO (17:19)
[2017-12-21] MEDS ORDERED: DEEP SEA44 ML NAS (17:20)
[2017-12-22] VITALS: BP 101/69
[2017-12-22 05:54] LABS: ALBUMIN 3.4 gm/dl (3.1-4.5); ALKALINE PHOSPHATASE 103 U/L (45-117); BUN 64 mg/dl (7-24); CHLORIDE 94 mmol/L (98-107); CREATININE 0.95 mg/dL (0.55-1.02); PHOSPHOROUS 3.7 mg/dL (2.5-4.9); POTASSIUM 4.2 mmol/L (3.5-5.1); SGOT/AST 25 IU/L (3-35); SGPT/ALT 30 U/L (12-78); SODIUM 139 mmol/L (136-145)
[2017-12-22 06:03] LABS: BASO % 0.5 % (0.0-1.0); EOS # 0.1 10*3/uL (0.0-0.4); EOS % 1.4 % (1.0-4.0); HEMATOCRIT 37.4 % (37.0-47.0); HEMOGLOBIN 9.9 g/dl (12.0-16.0); LYMPH # 0.6 10*3/uL (1.3-4.4); LYMPH % 13.9 % (27.0-41.0); MEAN CELL VOLUME 96.4 fl (81.0-99.0); MEAN CORPUSCULAR HGB 25.5 pg (27.0-31.0); MEAN CORPUSCULAR HGB CONC 26.5 g/dl (33.0-37.0); MEAN PLATELET VOLUME 10.5 fl (9.6-12.3); MONO # 0.4 10*3/uL (0.1-1.0); MONO % 9.4 % (3.0-9.0); NEUT # 3.1 10*3/uL (2.3-7.9); NEUT % 74.3 % (47.0-73.0); PLATELET COUNT AUTOMATED 106 10*3/uL (130-400); RED BLOOD COUNT 3.88 10*6/uL (4.10-5.10); RED CELL DISTRI WIDTH 14.5 % (0-14.5); WHITE BLOOD COUNT 4.2 10*3/uL (4.8-10.8)
[2017-12-22 08:00] VITALS: BP 106/63
[2017-12-22 12:00] VITALS: BP 121/47
[2017-12-22 16:00] VITALS: BP 103/50
[2017-12-22 20:00] VITALS: BP 123/59
[2017-12-23] VITALS: BP 118/53
[2017-12-23 06:43] LABS: BASO % 0.6 % (0.0-1.0); EOS # 0.1 10*3/uL (0.0-0.4); EOS % 1.7 % (1.0-4.0); HEMATOCRIT 34.7 % (37.0-47.0); HEMOGLOBIN 9.2 g/dl (12.0-16.0); LYMPH # 0.5 10*3/uL (1.3-4.4); LYMPH % 12.8 % (27.0-41.0); MEAN CELL VOLUME 94.8 fl (81.0-99.0); MEAN CORPUSCULAR HGB 25.1 pg (27.0-31.0); MEAN CORPUSCULAR HGB CONC 26.5 g/dl (33.0-37.0); MEAN PLATELET VOLUME 10.2 fl (9.6-12.3); MONO # 0.3 10*3/uL (0.1-1.0); MONO % 8.3 % (3.0-9.0); NEUT # 2.8 10*3/uL (2.3-7.9); NEUT % 76.3 % (47.0-73.0); PLATELET COUNT AUTOMATED 102 10*3/uL (130-400); RED BLOOD COUNT 3.66 10*6/uL (4.10-5.10); RED CELL DISTRI WIDTH 14.5 % (0-14.5); WHITE BLOOD COUNT 3.6 10*3/uL (4.8-10.8)
[2017-12-23 06:54] LABS: BUN 56 mg/dl (7-24); CHLORIDE 95 mmol/L (98-107); CREATININE 0.83 mg/dL (0.55-1.02); POTASSIUM 4.1 mmol/L (3.5-5.1); SODIUM 141 mmol/L (136-145)
[2017-12-23 08:00] VITALS: BP 92/55
[2017-12-23 12:00] VITALS: BP 110/78
[2017-12-23 16:00] VITALS: BP 121/69
[2017-12-23 20:00] VITALS: BP 110/70
[2017-12-24] VITALS: BP 100/53
[2017-12-24 06:58] LABS: BUN 53 mg/dl (7-24); CHLORIDE 94 mmol/L (98-107); CREATININE 0.82 mg/dL (0.55-1.02); SODIUM 139 mmol/L (136-145)
[2017-12-24 08:00] VITALS: BP 121/72
[2017-12-24 12:00] VITALS: BP 120/53
[2017-12-24 16:00] VITALS: BP 130/57
[2017-12-24 20:00] VITALS: BP 109/61
[2017-12-25] VITALS: BP 107/46
[2017-12-25 08:00] VITALS: BP 117/44
[2017-12-25 12:00] VITALS: BP 107/55
[2017-12-25 16:00] VITALS: BP 106/72
[2017-12-25 20:00] VITALS: BP 105/60
[2017-12-26] VITALS: BP 117/66
[2017-12-26 06:14] LABS: BASO % 0.2 % (0.0-1.0); EOS % 0.7 % (1.0-4.0); HEMATOCRIT 39.7 % (37.0-47.0); HEMOGLOBIN 10.2 g/dl (12.0-16.0); LYMPH # 0.5 10*3/uL (1.3-4.4); LYMPH % 8.1 % (27.0-41.0); MEAN CELL VOLUME 99.5 fl (81.0-99.0); MEAN CORPUSCULAR HGB 25.6 pg (27.0-31.0); MEAN CORPUSCULAR HGB CONC 25.7 g/dl (33.0-37.0); MEAN PLATELET VOLUME 10.3 fl (9.6-12.3); MONO # 0.5 10*3/uL (0.1-1.0); MONO % 8.7 % (3.0-9.0); NEUT # 4.5 10*3/uL (2.3-7.9); NEUT % 82.1 % (47.0-73.0); PLATELET COUNT AUTOMATED 111 10*3/uL (130-400); RED BLOOD COUNT 3.99 10*6/uL (4.10-5.10); RED CELL DISTRI WIDTH 14.6 % (0-14.5); WHITE BLOOD COUNT 5.5 10*3/uL (4.8-10.8)
[2017-12-26 06:55] LABS: BUN 50 mg/dl (7-24); CHLORIDE 91 mmol/L (98-107); CREATININE 1.06 mg/dL (0.55-1.02); POTASSIUM 4.1 mmol/L (3.5-5.1); SODIUM 140 mmol/L (136-145)
[2017-12-26 08:00] VITALS: BP 100/47
[2017-12-26 12:00] VITALS: BP 92/51
[2017-12-26 16:00] VITALS: BP 108/78
[2017-12-26 20:00] VITALS: BP 102/53
[2017-12-27] VITALS: BP 100/50
[2017-12-27 06:56] LABS: CREATININE 1.25 mg/dL (0.55-1.02); POTASSIUM 4.3 mmol/L (3.5-5.1)
[2017-12-27 08:00] VITALS: BP 121/67
[2017-12-27 12:00] VITALS: BP 102/59; BP 122/70
[2017-12-27 16:00] VITALS: BP 105/57
[2017-12-27 20:00] VITALS: BP 103/54
[2017-12-28] VITALS: BP 91/45
[2017-12-28 06:29] LABS: BASO % 0.4 % (0.0-1.0); EOS % 0.4 % (1.0-4.0); HEMATOCRIT 38.3 % (37.0-47.0); HEMOGLOBIN 9.7 g/dl (12.0-16.0); LYMPH # 0.4 10*3/uL (1.3-4.4); LYMPH % 6.8 % (27.0-41.0); MEAN CELL VOLUME 99.5 fl (81.0-99.0); MEAN CORPUSCULAR HGB 25.2 pg (27.0-31.0); MEAN CORPUSCULAR HGB CONC 25.3 g/dl (33.0-37.0); MEAN PLATELET VOLUME 10.3 fl (9.6-12.3); MONO # 0.3 10*3/uL (0.1-1.0); MONO % 6.4 % (3.0-9.0); NEUT # 4.5 10*3/uL (2.3-7.9); NEUT % 85.6 % (47.0-73.0); PLATELET COUNT AUTOMATED 113 10*3/uL (130-400); RED BLOOD COUNT 3.85 10*6/uL (4.10-5.10); RED CELL DISTRI WIDTH 14.6 % (0-14.5); WHITE BLOOD COUNT 5.3 10*3/uL (4.8-10.8)
[2017-12-28 06:46] LABS: CREATININE 1.57 mg/dL (0.55-1.02); POTASSIUM 4.6 mmol/L (3.5-5.1)
[2017-12-28 08:00] VITALS: BP 114/76
[2017-12-28 12:00] VITALS: BP 102/56
[2017-12-28 16:00] VITALS: BP 80/44
[2017-12-28 20:00] VITALS: BP 92/61
[2017-12-29] VITALS: BP 94/70
[2017-12-29 06:51] LABS: BASO % 0.4 % (0.0-1.0); EOS % 0.7 % (1.0-4.0); HEMATOCRIT 36.5 % (37.0-47.0); HEMOGLOBIN 9.5 g/dl (12.0-16.0); LYMPH # 0.5 10*3/uL (1.3-4.4); LYMPH % 9.8 % (27.0-41.0); MEAN CELL VOLUME 97.6 fl (81.0-99.0); MEAN CORPUSCULAR HGB 25.4 pg (27.0-31.0); MEAN PLATELET VOLUME 11.2 fl (9.6-12.3); MONO # 0.4 10*3/uL (0.1-1.0); MONO % 6.7 % (3.0-9.0); NEUT # 4.5 10*3/uL (2.3-7.9); PLATELET COUNT AUTOMATED 122 10*3/uL (130-400); RED BLOOD COUNT 3.74 10*6/uL (4.10-5.10); RED CELL DISTRI WIDTH 14.7 % (0-14.5); WHITE BLOOD COUNT 5.5 10*3/uL (4.8-10.8)
[2017-12-29 07:12] LABS: CREATININE 1.52 mg/dL (0.55-1.02); POTASSIUM 4.2 mmol/L (3.5-5.1)
[2017-12-29 08:00] VITALS: BP 95/56
[2017-12-29 12:00] VITALS: BP 109/66
[2017-12-29 16:00] VITALS: BP 102/67
== END 2017-12-29 17:08 | disposition hospice, home (50) | DRG 291 ==
LOC: ED 13:08 → EDHOLD 15:59 → 4E 15:59
PROVIDERS: Emergency Medicine; Internal Medicine
PROC: BD1BYZZ Fluoroscopy of Mouth/Oropharynx using Other Contrast (ICD-10-PCS; principal; 2017-12-27)
PROC: BD11YZZ Fluoroscopy of Esophagus using Other Contrast (ICD-10-PCS; principal; 2017-12-27)
DX: I13.0 Hypertensive heart and chronic kidney disease with heart failure and stage 1 through stage 4 chronic kidney disease, or unspecified chronic kidney disease (principal); I50.33 Acute on chronic diastolic (congestive) heart failure; J96.21 Acute and chronic respiratory failure with hypoxia; J96.22 Acute and chronic respiratory failure with hypercapnia; E87.3 Alkalosis; R44.0 Auditory hallucinations; N17.9 Acute kidney failure, unspecified; Z68.41 Body mass index [BMI] 40.0-44.9, adult; R26.2 Difficulty in walking, not elsewhere classified; N18.3 Chronic kidney disease, stage 3 (moderate); I48.2 Chronic atrial fibrillation; I35.0 Nonrheumatic aortic (valve) stenosis; E78.2 Mixed hyperlipidemia; E66.01 Morbid (severe) obesity due to excess calories; K21.9 Gastro-esophageal reflux disease without esophagitis; R00.0 Tachycardia, unspecified; D64.9 Anemia, unspecified; D69.6 Thrombocytopenia, unspecified; E87.8 Other disorders of electrolyte and fluid balance, not elsewhere classified; R73.9 Hyperglycemia, unspecified; E83.41 Hypermagnesemia; I89.0 Lymphedema, not elsewhere classified; Z66 Do not resuscitate; Z51.5 Encounter for palliative care; I95.9 Hypotension, unspecified; J98.01 Acute bronchospasm; R41.0 Disorientation, unspecified; R44.1 Visual hallucinations; F41.9 Anxiety disorder, unspecified; Z79.899 Other long term (current) drug therapy; Z87.440 Personal history of urinary (tract) infections; Z90.710 Acquired absence of both cervix and uterus; Z98.42 Cataract extraction status, left eye; Z79.01 Long term (current) use of anticoagulants; Z82.49 Family history of ischemic heart disease and other diseases of the circulatory system; Z83.3 Family history of diabetes mellitus; Z80.8 Family history of malignant neoplasm of other organs or systems; Z84.89 Family history of other specified conditions; Z74.01 Bed confinement status

== ENCOUNTER 2017-12-29 17:10 | Inpatient (IN) | payer OTHER ==
[~2017-12-29] VITALS: Ht 177.8 cm; Wt 139.7 kg
[~2017-12-29 17:10] MED LIST changes: +MIRALAX POWDER255 G1 PO
[2017-12-29 20:00] VITALS: BP 82/57
== END 2017-12-29 21:26 | disposition expired | DRG 682 ==
LOC: 4E 17:10
DX: N17.0 Acute kidney failure with tubular necrosis (principal); J96.01 Acute respiratory failure with hypoxia; E87.3 Alkalosis; I13.0 Hypertensive heart and chronic kidney disease with heart failure and stage 1 through stage 4 chronic kidney disease, or unspecified chronic kidney disease; I50.32 Chronic diastolic (congestive) heart failure; R44.0 Auditory hallucinations; Z68.41 Body mass index [BMI] 40.0-44.9, adult; R00.0 Tachycardia, unspecified; D64.9 Anemia, unspecified; D69.6 Thrombocytopenia, unspecified; E87.8 Other disorders of electrolyte and fluid balance, not elsewhere classified; R73.9 Hyperglycemia, unspecified; E83.41 Hypermagnesemia; R79.89 Other specified abnormal findings of blood chemistry; N18.3 Chronic kidney disease, stage 3 (moderate); I48.2 Chronic atrial fibrillation; I35.0 Nonrheumatic aortic (valve) stenosis; E78.2 Mixed hyperlipidemia; E66.01 Morbid (severe) obesity due to excess calories; K21.9 Gastro-esophageal reflux disease without esophagitis; I89.0 Lymphedema, not elsewhere classified; R44.1 Visual hallucinations; Z51.5 Encounter for palliative care; Z66 Do not resuscitate; R26.2 Difficulty in walking, not elsewhere classified